=== PATIENT | female | born 1955 | race Caucasian/White ===

== ENCOUNTER 2020-08-14 10:37 | Outpatient (REF) | payer MEDICARE, MEDICAID, SELFPAY | END 2020-08-14 10:38 | disposition home or self-care (01) | LOC: HO.LAB 10:37 | PROVIDERS: Visit Provider Internal Medicine | DX: Z20.822 Contact with and (suspected) exposure to COVID-19 (principal) | CPT/HCPCS: 36415; C9803; U0003; U0005 ==

== ENCOUNTER 2020-09-18 13:13 | Outpatient (REF) | payer MEDICARE, MEDICAID, SELFPAY ==
--- NOTE | ~2020-09-18 | MM_ITS ---
EXAMINATION: MM DIAGNOSTIC DIGITAL BREAST TOMOSYNTHESIS, BILATERAL CLINICAL INFORMATION: Six-month follow-up left breast calcifications. Routine screening right breast. COMPARISON: Mammography: November 20, 2019 and studies dating back to November 08, 2011 TECHNIQUE: Digital breast tomosynthesis is performed in both the craniocaudal and mediolateral oblique views along with computer-aided detection (CAD). Synthesized 2D images are generated from the tomosynthesis. Spot magnification films left breast in craniocaudal and 90 degree mediolateral views also performed. FINDINGS: There are scattered areas of fibroglandular density (ACR BI-RADS breast composition Category b). No new abnormal dominant masses are identified. There is stability of left breast calcifications. Results are provided to the patient at time of visit by the technologist. MM/MM tomosynthesis diagnostic BI IMPRESSION: There are no significant changes from prior study. ASSESSMENT: BI-RADS 2: Benign RECOMMENDATION: Routine annual mammography screening due in 12 months. This patient's information was entered into a reminder system with a target due date for their next mammogram.
== END 2020-09-18 13:14 | disposition home or self-care (01) ==
LOC: HO.MAMMO 13:13
PROVIDERS: PCP Internal Medicine; Visit Provider Internal Medicine
DX: R92.1 Mammographic calcification found on diagnostic imaging of breast (principal)
CPT/HCPCS: 77062; 77066

== ENCOUNTER 2020-12-11 09:46 | Outpatient (REF) | payer MEDICARE, MEDICAID, SELFPAY ==
--- NOTE | ~2020-12-11 | MM_ITS ---
EXAMINATION: BONE DENSITOMETRY CLINICAL INDICATION: Screening for osteoporosis. COMPARISON: Baseline BD dated 08/30/2007. TECHNIQUE: Using a [employer] DXA System (software version: 13.1) manufactured by [employer], dual-energy x-ray absorptiometry was performed of the lumbar spine and left hip. The images are of good technical quality. Summary results are attached. FINDINGS: AP SPINE L1-L4: Current: BMD 1.230 g/cm2, Z-score 1.6, T-score 0.4, normal, 10.9% decrease from baseline (<5% change is not significant). Baseline: BMD 1.380 g/cm2. LEFT FEMUR, NECK: Current: BMD 0.836 g/cm2, Z-score 0.2, T-score -1.5, osteopenia. Baseline: BMD 1.032 g/cm2. LEFT FEMUR, TOTAL: Current: BMD 0.970 g/cm2, Z-score 0.7, T-score -0.3, normal, 13.5% decrease from baseline (<5% change is not significant). Baseline: BMD 1.122 g/cm2. IDENTIFIED RISK FACTORS: Hysterectomy, bilateral oophorectomy, menopause. HISTORY OF FRACTURE: None listed. MEDICATIONS: None listed. MM/XR DEXA axial skeleton IMPRESSION: 1. DIAGNOSIS: Osteopenia based on the lowest T-score value of -1.5 in the femoral neck applying World Health Organization criteria. 2. 10-YEAR FRACTURE RISK PREDICTION, FRAX: Major osteoporotic fracture (clinical spine, forearm, hip or shoulder) 4.8%. Hip fracture 0.5%. 3. Treatment Recommendations: NOF guidelines recommend consideration for treatment in postmenopausal women and men age 50 and older presenting with the following: -A hip or vertebral (clinical or morphometric) fracture. -T-score less than or equal to -2.5 at the femoral neck or spine after appropriate evaluation to exclude secondary causes. -Low bone mass at the hip or spine and a 10-year fracture probability by FRAX of greater than or equal to 3% for hip fracture or greater than or equal to 20% for major osteoporotic fracture based on the [place] adapted WHO algorithm. 4. Other Recommendations: All treatment decisions require clinical judgment and consideration of individual patient factors, including patient preferences, comorbidities, previous drug use, risk factors not captured in the FRAX model (e.g. frailty, falls, vitamin D deficiency, increased bone turnover, interval significant decline in bone density) and possible under or overestimation of fracture risk by FRAX. Additional medical evaluation for secondary cause of low bone mineral density may be appropriate. FUTURE SCAN RECOMMENDATION: People with diagnosed cases of osteoporosis or at high risk for fracture should have regular bone mineral density tests. For patients eligible for Medicare, routine testing is allowed once every 2 years. The testing frequency can be increased to one year for patients who have rapidly progressing disease, those who are receiving or discontinuing medical therapy to restore bone mass, or have additional risk factors.
== END 2020-12-11 09:47 | disposition home or self-care (01) ==
LOC: HO.MAMMO 09:46
PROVIDERS: PCP Internal Medicine; Visit Provider Internal Medicine
DX: Z13.820 Encounter for screening for osteoporosis (principal); M85.80 Other specified disorders of bone density and structure, unspecified site; Z78.0 Asymptomatic menopausal state; Z79.899 Other long term (current) drug therapy; Z98.890 Other specified postprocedural states
CPT/HCPCS: 77080

== ENCOUNTER 2022-01-18 14:16 | Outpatient (REF) | payer OTHER, SELFPAY ==
--- NOTE | ~2022-01-18 | US_ITS ---
EXAMINATION: US RETROPERITONEAL LIMITED (RENAL ONLY) CLINICAL INFORMATION: Dysuria, gross hematuria. COMPARISON: None TECHNIQUE: Real-time imaging of the kidneys. FINDINGS: RIGHT KIDNEY: 11.8 x 4.7 x 5.2 cm (SAG x AP x TRV). The kidney is normal in size, contour, and echogenicity. Renal cortical thickness is normal. No calculi. No hydronephrosis. There appears to be a column of Shay with similar echotexture and vascular flow to surrounding cortex. LEFT KIDNEY: 11.0 x 5.8 x 5.1 cm (SAG x AP x TRV). The kidney is normal in size, contour, and echogenicity. Renal cortical thickness is normal. No calculi or focal parenchymal lesions. No hydronephrosis. US/US renal BI IMPRESSION: No evidence of nephrolithiasis or hydronephrosis. Apparent column of Shay within the right kidney without definite focal suspicious mass being identified.
== END 2022-01-18 14:17 | disposition home or self-care (01) ==
LOC: HO.US 14:16
PROVIDERS: Visit Provider Nurse Practitioner
DX: R30.0 Dysuria (principal); R31.0 Gross hematuria
CPT/HCPCS: 76775

== ENCOUNTER 2023-08-10 08:35 | Outpatient (REF) | payer OTHER, SELFPAY ==
[2023-08-10 12:03] LABS: Alanine Aminotransferase 13 U/L (0-31); Albumin Level 4.5 g/dL (3.5-5.0); Alkaline Phosphatase 73 U/L (39-117); Anion Gap 14 (12-20); Aspartate Amino Transferase 21 U/L (5-31); Bilirubin Total 0.4 mg/dL (0.0-1.0); Blood Urea Nitrogen 16 mg/dL (9-16); Calcium 9.6 mg/dL (8.4-10.2); Carbon Dioxide 27 mmol/L (22-29); Chloride 104 mmol/L (96-108); Cholesterol 120 mg/dL (<200); Estimated Glomerular Filt Rate > 60; Glucose Random 108 mg/dL (60-115); HDL Cholesterol 53 mg/dL (>40); LDL Cholesterol Calculated 50 mg/dL (<100); Potassium 4.9 mmol/L (3.3-5.1); Sodium 140 mmol/L (135-145); Triglycerides 87 mg/dL (<150)
[2023-08-10 12:06] LABS: Thyroid Stimulating Hormone 17.63 uIU/mL (0.32-4.0)
[2023-08-10 12:15] LABS: Creatinine Urine 185.31 mg/dL; Microalbum/Creatinine Ratio Ur 68.5 ug/mg cr (<30)
== END 2023-08-10 08:36 | disposition home or self-care (01) ==
LOC: HO.HHCL 08:35
PROVIDERS: Visit Provider Nurse Practitioner
DX: E11.9 Type 2 diabetes mellitus without complications (principal); I10 Essential (primary) hypertension; E03.9 Hypothyroidism, unspecified; E78.5 Hyperlipidemia, unspecified
CPT/HCPCS: 36415; 80053; 80061; 82043; 82570; 84443

== ENCOUNTER 2023-09-07 11:33 | Outpatient (REF) | payer OTHER, SELFPAY ==
--- NOTE | ~2023-09-07 | MM_ITS ---
EXAMINATION: MM SCREENING DIGITAL BREAST TOMOSYNTHESIS, BILATERAL CLINICAL INFORMATION: Screening. Asymptomatic. COMPARISON: Mammography: This study is compared with prior exams dating back to 2018. TECHNIQUE: Digital breast tomosynthesis is performed in both the craniocaudal and mediolateral oblique views along with computer-aided detection (CAD). Synthesized 2D images are generated from the tomosynthesis. FINDINGS: There are scattered areas of fibroglandular density (ACR BI-RADS breast composition Category b). There are no significant masses, abnormal calcifications, or other abnormalities. There are bilateral, benign calcifications in each breast. MM/MM tomosynthesis screening BI IMPRESSION: No mammographic evidence of malignancy. ASSESSMENT: BI-RADS BI-RADS 2 - Benign Findings RECOMMENDATION: Routine annual mammography screening. 1 year F/U This examination should not preclude the clinical evaluation of a suspicious palpable abnormality. This patient's information was entered into a reminder system with a target due date for their next mammogram.
== END 2023-09-07 11:34 | disposition home or self-care (01) ==
LOC: HO.MAMMO 11:33
PROVIDERS: PCP Nurse Practitioner; Visit Provider Nurse Practitioner
DX: Z12.31 Encounter for screening mammogram for malignant neoplasm of breast (principal)
CPT/HCPCS: 77063; 77067

== ENCOUNTER → 2023-09-07 12:15 | Outpatient (BNV) | payer OTHER, SELFPAY | PROVIDERS: PCP Nurse Practitioner; Visit Provider Radiology Diagnostic Radiology | DX: Z12.31 Encounter for screening mammogram for malignant neoplasm of breast (principal) | CPT/HCPCS: 77063; 77067 ==

== ENCOUNTER 2023-09-29 10:34 | Outpatient (REF) | payer OTHER, SELFPAY ==
[2023-09-29 14:35] LABS: TSH reflex Free T4 1.95 uIU/mL (0.32-4.0)
== END 2023-09-29 10:35 | disposition home or self-care (01) ==
LOC: HO.HHCL 10:34
PROVIDERS: Visit Provider Nurse Practitioner
DX: E03.9 Hypothyroidism, unspecified (principal)
CPT/HCPCS: 36415; 84443

== ENCOUNTER 2023-11-24 09:46 | Outpatient (REF) | payer OTHER, SELFPAY ==
[2023-11-24 11:47] LABS: Anion Gap 15 (12-20); Blood Urea Nitrogen 13 mg/dL (9-16); Calcium 9.2 mg/dL (8.4-10.2); Carbon Dioxide 25 mmol/L (22-29); Chloride 105 mmol/L (96-108); Estimated Glomerular Filt Rate > 60; Glucose Random 108 mg/dL (60-115); Potassium 4.4 mmol/L (3.3-5.1); Sodium 141 mmol/L (135-145)
[2023-11-24 12:08] LABS: Vitamin D 25-OH Total 43.6 ng/mL (>30)
[2023-11-24 12:14] LABS: Vitamin B12 1102 pg/mL (200-900)
[2023-11-24 12:21] LABS: Creatinine Urine 172.73 mg/dL
[2023-11-24 12:28] LABS: Microalbum/Creatinine Ratio Ur 43.4 ug/mg cr (<30)
== END 2023-11-24 09:47 | disposition home or self-care (01) ==
LOC: HO.HHCL 09:46
PROVIDERS: Visit Provider Nurse Practitioner
DX: Z13.820 Encounter for screening for osteoporosis (principal); I10 Essential (primary) hypertension
CPT/HCPCS: 36415; 80048; 82043; 82306; 82570; 82607; 82746

== ENCOUNTER 2024-02-28 11:52 | Outpatient (REF) | payer OTHER, SELFPAY ==
[2024-02-28 15:01] LABS: Anion Gap 14 (12-20); Blood Urea Nitrogen 9 mg/dL (9-16); Calcium 9.7 mg/dL (8.4-10.2); Carbon Dioxide 25 mmol/L (22-29); Chloride 105 mmol/L (96-108); Estimated Glomerular Filt Rate > 60; Glucose Random 112 mg/dL (60-115); Potassium 4.7 mmol/L (3.3-5.1); Sodium 139 mmol/L (135-145); TSH reflex Free T4 0.47 uIU/mL (0.32-4.0)
[2024-02-28 15:04] LABS: Creatinine Urine 26.44 mg/dL; Microalbum/Creatinine Ratio Ur 83.2 ug/mg cr (<30)
[2024-02-29 05:32] LABS: ~HepC Num1 2.04 S/CO (0.00-0.79); ~Hepatitis C Antibody Reactive (Nonreactive)
[2024-03-02 14:13] LABS: HCV Log PCR <1.18 NOT DETECTED Log IU/mL (NOT DETECTED); HepC Viral Load <15 NOT DETECTED IU/mL (NOT DETECTED)
== END 2024-02-28 11:53 | disposition home or self-care (01) ==
LOC: HO.HHCL 11:52
PROVIDERS: Visit Provider Nurse Practitioner
DX: E03.9 Hypothyroidism, unspecified (principal); E11.9 Type 2 diabetes mellitus without complications; I10 Essential (primary) hypertension; R80.9 Proteinuria, unspecified
CPT/HCPCS: 36415; 80048; 82043; 82570; 84443; 86803; 87522

== ENCOUNTER 2024-03-19 09:44 | Outpatient (REF) | payer OTHER, SELFPAY ==
--- NOTE | ~2024-03-19 | MM_ITS ---
EXAMINATION: BONE DENSITOMETRY CLINICAL INDICATION: Osteopenia. COMPARISON: Previous BD dated 12/11/2020 and baseline BD dated 08/30/2007. TECHNIQUE: Using a [employer] DXA System (software version: 13.1) manufactured by [employer], dual-energy x-ray absorptiometry was performed of the lumbar spine and left hip. The images are of good technical quality. Summary results are attached. FINDINGS: LEFT FEMUR, NECK: Current: BMD 0.877 g/cm2, Z-score 0.4, T-score -1.2, osteopenia. Prior: BMD 0.836 g/cm2. Baseline: BMD 1.032 g/cm2. LEFT FEMUR, TOTAL: Current: BMD 0.908 g/cm2, Z-score 0.6, T-score -0.8, normal, 6.4% decrease from previous, 19.1% decrease from baseline (<5% change is not significant). Prior: BMD 0.970 g/cm2. Baseline: BMD 1.122 g/cm2. AP SPINE L1-L4: Current: BMD 1.176 g/cm2, Z-score 1.5, T-score 0.0, normal, 4.4% decrease from previous, 14.8% decrease from baseline (<5% change is not significant). Prior: BMD 1.230 g/cm2. Baseline: BMD 1.380 g/cm2. IDENTIFIED RISK FACTORS: Menopause, low calcium intake, hysterectomy, bilateral oophorectomy, secondary osteoporosis. HISTORY OF FRACTURE: None listed. MEDICATIONS: Calcium. MM/XR DEXA axial skeleton IMPRESSION: 1. DIAGNOSIS: Osteopenia based on the lowest T-score value of -1.2 in the femoral neck applying World Health Organization criteria. 2. 10-YEAR FRACTURE RISK PREDICTION, FRAX: Major osteoporotic fracture (clinical spine, forearm, hip or shoulder) 5.0%. Hip fracture 0.5%. 3. Treatment Recommendations: NOF guidelines recommend consideration for treatment in postmenopausal women and men age 50 and older presenting with the following: -A hip or vertebral (clinical or morphometric) fracture. -T-score less than or equal to -2.5 at the femoral neck or spine after appropriate evaluation to exclude secondary causes. -Low bone mass at the hip or spine and a 10-year fracture probability by FRAX of greater than or equal to 3% for hip fracture or greater than or equal to 20% for major osteoporotic fracture based on the [place] adapted WHO algorithm. 4. Other Recommendations: All treatment decisions require clinical judgment and consideration of individual patient factors, including patient preferences, comorbidities, previous drug use, risk factors not captured in the FRAX model (e.g. frailty, falls, vitamin D deficiency, increased bone turnover, interval significant decline in bone density) and possible under or overestimation of fracture risk by FRAX. Additional medical evaluation for secondary cause of low bone mineral density may be appropriate. FUTURE SCAN RECOMMENDATION: People with diagnosed cases of osteoporosis or at high risk for fracture should have regular bone mineral density tests. For patients eligible for Medicare, routine testing is allowed once every 2 years. The testing frequency can be increased to one year for patients who have rapidly progressing disease, those who are receiving or discontinuing medical therapy to restore bone mass, or have additional risk factors. Electronically signed by: Eduin Irizarry MD 03/26/2024 01:33 PM EDT
== END 2024-03-19 09:45 | disposition home or self-care (01) ==
LOC: HO.MAMMO 09:44
PROVIDERS: PCP Nurse Practitioner; Visit Provider Nurse Practitioner
DX: Z13.820 Encounter for screening for osteoporosis (principal); Z78.0 Asymptomatic menopausal state; M85.859 Other specified disorders of bone density and structure, unspecified thigh
CPT/HCPCS: 77080

== ENCOUNTER 2024-11-20 14:51 | Outpatient (REF) | payer OTHER, SELFPAY ==
--- OUTSIDE RECORDS SUMMARY | 2024-11-20 14:56 | XMS_ITS | Encounter Summary ---
Author Organization [email or web address] [facility] Address [address] [place] [address] [address] [place] [address] Care Team Providers Care Supervising Fire Marshal Name Role Phone Betsy Dior NP Primary Care Provider [phone] Reason for Visit * Reason Comments Med Refill Encounter Details Date Type Department Care Team (Late st Contact Info) Description 07/04/2023 Refill [facility] [address] [place] [address] Gokul Alcocer AGNP Seasonal allergic rhinitis, unspecified trigger Social History Tobacco Use Types Packs/Day Years Used Date Smoking Tobacco: Never Assessed Comments Unknown Sex and Gender Information Value Date Recorded Sex Assigned at Female 04/18/2022 10:19 AM EDT Legal Sex Female 10:19 AM EDT Gender Identity Female 04/18/2022 10:19 AM EDT Sexual Orientation Straight 04/18/2022 10 :19 AM EDT documented as of this encounter Plan of Treatment Upcoming Encounters Date Type Department Care Team (Late st Contact Info) Description 12/02/2024 1:30 PM EDT Office Visit [facility] MEDIC[facility] [address] [place] [address] Betsy Dior NP [address] [place] [address] documented as of this encounter Visit Diagnoses Diagnosis Seasonal allergic rhinitis, unspecified trigger documented in this encounter Care Teams Supervising Fire Marshal Relationship Specialty Start Date End Date Betsy Dior NP [address] [place] [address] PCP - General Family Medicine 06/21/23 documented as of this encounter
== END 2024-11-20 14:52 | disposition home or self-care (01) ==
LOC: HO.MAMMO 14:51
PROVIDERS: PCP Nurse Practitioner; Visit Provider Nurse Practitioner
DX: Z12.31 Encounter for screening mammogram for malignant neoplasm of breast (principal)
CPT/HCPCS: 77063; 77067

== ENCOUNTER → 2024-11-20 15:30 | Outpatient (BNV) | payer OTHER, SELFPAY | PROVIDERS: PCP Nurse Practitioner; Visit Provider Internal Medicine | DX: Z12.31 Encounter for screening mammogram for malignant neoplasm of breast (principal) | CPT/HCPCS: 77063; 77067 ==

== ENCOUNTER 2024-11-27 09:44 | Outpatient (REF) | payer OTHER, SELFPAY ==
--- OUTSIDE RECORDS SUMMARY | 2024-11-27 10:42 | XMS_ITS | Encounter Summary ---
Author Organization [employer] Address [address] [facility] [address] [place] [address] Care Team Providers Care Solvent Station Attendant Name Role Phone Betsy Dior NP Primary Care Provider [phone] Encounter Details Date Type Department Care Team ([facility] st Contact Info) Description 11/20/2024 Orders Only [facility] MEDICINE [address] [place] [address] Betsy Dior NP [address] [place] [address] Social History Tobacco Use Types Packs/Day Years Used Date Smoking Tobacco: Some Days Cigarettes Smokeless Tobacco: Never Alcohol Use Standard Drinks/Week Comments Never 0 (1 standard drink = 0.6 oz pur e alcohol) Alcohol Answer Date Recorded Frequency of Alcohol Consumption Not on file 04/03/2024 Average Number of Drinks Not on file 024 Frequency of Binge Drinking Not on file 03/19 Score 0 04/03/2024 Depression Answer Date Recorded Patient Health Questionnaire-9 Score 0 04/03/2024 Patient Health Questionnaire-9 Score 0 04/03/2024 Last PHQ-9: Questionnaire Data Not on file 1 Housing Stability Answer Date Recorded What is your housing situation today? I have emilie levy 08/09/[address] you li ve. Do you have problems with any of the following? None of the above 08/09/2023 Food Insecurity Answer Date Recorded Within the past 12 months, y ou worried that your food would run out before you got money to buy more: Never True 08/09/2023 Within the past 12 months,th e food you bought just didn't last and you didn't have enough money to get more: Never True Transportation Answer Date Recorded In the past 12 months, has l ack of transportation kept you from medical appts, meetings, work or from getting things needed for daily living? No 08/09/2023 Utilities Answer Date Recorded In the past 12 months, has t he electric, gas, oil or water company threatened to shut off services in your home? No 08/09/2023 Depression Answer Date Recorded Patient Health Questionnaire-2 Score 0 04/03/2024 Comments Unknown Sex and Gender Information Value [...] Description 12/02/2024 1:30 PM EDT Office Visit [facility] MEDICINE [address] [place] [address] Betsy Dior NP [address] [place] [address] documented as of this encounter Procedures Procedure Name Priority Date/Time Associated Diagnosis Comments BI MAMMOGRAM SCREENING TOMOSYNTHESIS BILATERAL Routine 11/20/2024 2:55 PM EDT documented in this encounter Results * BI Mammogram Screening Tomosynthesis Bilateral (11/20/2024 2:55 PM EDT) Anatomical Region Laterality Modality Breast Bilateral Mammography 11/20/2024 2:55 PM EDT Narrative 11/24/2024 7:57 PM EDT ? [facility] [place] ? [address] ?[place] [address] ?[phone] ? Mammography Report ? Signed ? Patient: Franki Tilton,Thais ?MR#: [id number] ?? [id number] ? : 1955 ?Acct:[id number] ? Age/Sex: 69 / F ?ADM Date: 06/04/25 ? Loc: HO.MAMMO ? Attending Dr: Betsy Dior ? Ordering Physician: Betsy Dior ?Results: 1Negative ? Date of Service: 11/20/24 ?Follow Up: 1 Year From Orig ?? inal Mammogram ? Procedure(s): MM tomosynthesis screening BI ?? Accession Number(s): [id number] ? cc: Betsy Dior ? EXAMINATION: ?? MM SCREENING DIGITAL BREAST TOMOSYNTHESIS, BILATERAL ? CLINICAL INFORMATION: ? Screening. Asymptomatic. ? COMPARISON: ?? Mammography: Comparison is made with available priors ? TECHNIQUE: ?? Digital breast mammography with tomosynthesis is performed in both the ?? craniocaudal and mediolateral oblique views along with computer-aided ?? detection (CAD). ? FINDINGS: ?? There are scattered areas of fibroglandular density (ACR BI-RADS breast ?? composition Category b). ? There are no significant masses, abnormal calcifications, or other ?? abnormalities. ? MM/MM tomosynthesis screening BI ?? IMPRESSION: ?? No mammographic evidence of malignancy. ? ASSESSMENT: ? BI-RADS BI-RADS 1 - Negative ? RECOMMENDATION: ?? Routine annual mammography screening. ? 1 year F/U ? This examination should not preclude the clinical evaluation of a ?? suspicious palpable abnormality. ? This patient's information was entered into a reminder system with a ?? target due date for their next mammogram. ? Electronically signed by: ??Khadra Chapman DO ??11/24/2024 07:54 PM EDT ?? RP ? Dictated By: ?Khadra Chapman DO ? Signed By: ?<Electronically signed by Khadra Chapman, DO in OV> ? 11/24/241953 ? DD/ 54 ? TD/TT: 11/20/24 1507 ? Rawhide Trimmer: ? Procedure Note Donmarisabel, Image - 11/24/2024 [facility] [address] [place] [address] Mammography Report Signed Patient: Lizbeth Olivera#: [id number] : 5Acct:[id number] Age/Sex: 69 / FADM Date: 11/20/24 Loc: HO.MAMMO Attending Dr: Betsy Dior Ordering Physician: Betsy DiorResults: 1Negative Date of Service: 11/20/24Follow Up: 1 Year From Orig inal Mammogram Procedure(s): MM tomosynthesis screening BI Accession Number(s): [id number] cc: Betsy Dior EXAMINATION: MM SCREENING DIGITAL BREAST TOMOSYNTHESIS, BILATERAL CLINICAL INFORMATION: Screening. Asymptomatic. COMPARISON: Mammography: Comparison is made with available priors TECHNIQUE: Digital breast mammography with tomosynthesis is performed in both the craniocaudal and mediolateral oblique views along with computer-aided detection (CAD). FINDINGS: There are scattered areas of fibroglandular density (ACR BI-RADS breast composition Category b). There are no significant masses, abnormal calcifications, or other abnormalities. MM/MM tomosynthesis screening BI IMPRESSION: No mammographic evidence of malignancy. ASSESSMENT: BI-RADS BI-RADS 1 - Negative RECOMMENDATION: Routine annual mammography screening. 1 year F/U This examination should not preclude the clinical evaluation of a suspicious palpable abnormality. This patient's information was entered into a reminder system with a target due date for their next mammogram. Electronically signed by: Khadra Chapman DO 11/24/2024 07:54 PM EDT Dictated By: Khadra Chapman DO Signed By: <Electronically signed by Khadra Chapman DO in OV> 11/24/24 195 DD/ 1455 TD/TT: 11/20/24 1507 Rawhide Trimmer: Betsy Dior NP IMG BI PROCEDURES Edited Result - Final documented in this encounter Visit Diagnoses Not on filedocumented in this encounter Additional Health Concerns Assessment Noted Time PHQ-9 Depression Total Score: 0 04/03/20 2:15 PM EDT documented as of this encounter Care Teams Solvent Station Attendant Relationship Specialty Start Date End Date Betsy Dior NP [address] [place] [address] PCP - General Family Medicine 06/21/23 documented as of this encounter
[2024-11-27 11:35] LABS: Estimated Average Glucose 151 mg/dL; Hemoglobin A1c % 6.9 % (<6.0)
[2024-11-27 11:49] LABS: Alanine Aminotransferase 11 U/L (0-31); Albumin Level 4.7 g/dL (3.5-5.0); Alkaline Phosphatase 72 U/L (39-117); Anion Gap 10 (12-20); Aspartate Amino Transferase 21 U/L (5-31); Bilirubin Total 0.4 mg/dL (0.0-1.0); Blood Urea Nitrogen 15 mg/dL (9-16); Calcium 9.5 mg/dL (8.4-10.2); Carbon Dioxide 27 mmol/L (22-29); Chloride 103 mmol/L (96-108); Cholesterol 116 mg/dL (<200); Estimated Glomerular Filt Rate > 60; Glucose Random 109 mg/dL (60-115); HDL Cholesterol 48 mg/dL (>40); LDL Cholesterol Calculated 50 mg/dL (<100); Potassium 4.4 mmol/L (3.3-5.1); Sodium 136 mmol/L (135-145); Total Protein 7.5 g/dL (6.5-8.0); Triglycerides 92 mg/dL (<150)
[2024-11-27 12:10] LABS: Creatinine Urine 94.27 mg/dL; Microalbum/Creatinine Ratio Ur 55.1 ug/mg cr (<30)
== END 2024-11-27 09:45 | disposition home or self-care (01) ==
LOC: HO.HHCL 09:44
PROVIDERS: Visit Provider Nurse Practitioner
DX: E11.9 Type 2 diabetes mellitus without complications (principal); I10 Essential (primary) hypertension
CPT/HCPCS: 36415; 80053; 80061; 82043; 82570; 83036

== ENCOUNTER 2025-03-12 09:14 | Outpatient (REF) | payer OTHER, SELFPAY ==
--- OUTSIDE RECORDS SUMMARY | 2025-03-12 10:50 | XMS_ITS | Clinical Summary ---
Demographics Address [address] [place] [address] Mobile Phone Home Phone Preferred Language es Marital Status Single Nondenominational Affiliation Unknown Race Other Race Ethnic Group Unknown Author Organization [facility] Address [address] [place] [address] Care Team Providers Care Financial Administration Officer Name Role Phone Maria FernandaBetsy busch GRACE Primary Care Provider [phone] Allergies No known active allergies Medications lidocaine (Xylocaine) 5 % ointment Apply topically at bed time. 02/24/20 22 Active lidocaine (Lidoderm) 5 % patch Place 1 patch on the skin at bed time. 03/07/20 22 Active glucagon (Baqsimi One Pack) 3 MG/DOSE nasal powderIndicati ons:Type 2 diabetes mellitus without complication, without long-term current use of insulin ([facility]) Administer 3 mg into affected nostril(s) 1 (one) time if needed for low blood sugar. 1 each 1 02/28/20 24 Active hydrocortisone 2.5 % creamIndicatio ns:Rash Apply topically 2 times daily. Apply to neck 28 g 04/03/20 24 Active lisinopril 40 MG tabletIndicati ons:Hypertensi on, unspecified type Take 1 tablet (40 mg) by mouth Once per day. 90 tablet 3 04/03/20 24 025 Active omeprazole (PriLOSEC) [address] capsule take 1 capsule by oral route every day before a meal 90 capsule 3 04/03/20 24 Active ondansetron (Zofran) 4 MG tabletIndicati ons:Nausea Take 1 tablet (4 mg) by mouth every 8 (eight) hours if needed for nausea or vomiting for up to 10 doses. 10 tablet 06/28/19 25 Active Diclofenac Sodium 1 % gelIndications :Pain in both wrists Apply 1 Application topically if needed in the morning, at noon, and at bedtime (pain). 100 g 1 06/28/19 25 Active aspirin (Aspirin Low Dose) 81 MG EC tablet TAKE 1 TABLET BY MOUTH AT BEDTIME 90 tablet 1 10/23/19 25 Active Ascorbic Acid (vitamin C) 500 MG tablet TAKE 2 TABLETS BY MOUTH ONCE DAILY IN THE MORNING 180 tablet 1 10/23/19 25 Active loratadine (Claritin) 10 MG tabletIndicati ons:Seasonal allergic rhinitis, unspecified trigger TAKE 1 TABLET BY MOUTH ONCE DAILY NEEDED FOR ALLERGIES 90 tablet 1 10/23/19 25 Active folic acid (Folvite) 1 MG tablet TAKE 1 TABLET BY MOUTH EVERYDAY AT NOON 90 tablet 1 10/23/19 25 Active TRUEplus Lancets 33G miscIndication s:Type 2 diabetes mellitus without complication, unspecified whether skilled nursing insulin use ([facility]) TEST BLOOD SUGAR TWICE DAILY OR DIRECTED 100 each 11 10/25/19 25 Active glucose blood (FREESTYLE LITE) test stripIndicatio ns:Type 2 diabetes mellitus without complication, unspecified whether laborer marine terminal insulin use ([facility]) TEST BLOOD SUGAR TWICE DAILY OR DIRECTED 100 strip 11 10/25/19 25 Active melatonin 5 MG tablet TAKE 2 TABLETS BY MOUTH EVERY DAY AT BEDTIME 60 tablet 3 11/19/19 25 Active hydrocortisone (Anusol-HC) 2.5 % rectal cream Insert into the rectum 2 times daily. 28 g 2 12/03/19 25 Active metFORMIN (Glucophage) 500 MG tabletIndicati ons:Type 2 diabetes mellitus without complication, without long-term current use of insulin ([facility]) Take 1 tablet (500 mg) by mouth with breakfast and with evening meal. 180 tablet 12/04/19 25 Active atorvastatin (Lipitor) 40 MG tabletIndicati ons:Type 2 diabetes mellitus without complication, unspecified whether laborer marine terminal insulin use ([facility]) TAKE 1 TABLET BY MOUTH AT BEDTIME 90 tablet 01/17/20 25 Active amLODIPine (Norvasc) 10 MG tabletIndicati ons:Hypertensi on, unspecified type TAKE 1 TABLET BY MOUTH EVERYDAY AT NOON 90 tablet 01/17/20 25 Active levothyroxine (Synthroid, Levoxyl) 125 MCG tabletIndicati ons:Hypothyroi dism, unspecified type TAKE 1 TABLET BY MOUTH EVERY MORNING ON AN EMPTY STOMACH 30-60 MINUTES BEFORE MEALS 90 tablet 01/17/20 25 Active Calcium 600/Vitamin D3 600-20 MG-MCG tabletIndicati ons:Osteopenia of neck of femur, unspecified laterality TAKE 1 TABLET BY MOUTH TWICE DAILY IN THE MORNING AND IN THE EVENING WITH FOOD 60 tablet 3 03/11/20 25 Active Kerendia 20 MG tabletIndicati ons:Microalbum inuria TAKE 1 TABLET BY MOUTH EVERY DAY 30 tablet 2 03/11/20 25 Active empagliflozin (Jardiance) 10 MGIndications: Microalbuminur ia TAKE 1 TABLET BY MOUTH EVERY MORNING 30 tablet 3 03/11/20 25 Active ammonium lactate (Lac-Hydrin) 12 % lotionIndicati ons:Itchy skin Apply topically if needed for dry skin. 225 g 02/28/20 24 025 Calcium 600/Vitamin D3 600-20 MG-MCG tabletIndicati ons:Osteopenia of neck of femur, unspecified laterality TAKE 1 TABLET BY MOUTH TWICE DAILY WITH FOOD 60 tablet 3 11/19/19 25 025 Discontinued Finerenone (Kerendia) 20 MG tabletIndicati ons:Microalbum inuria Take 20 mg by mouth Once per day. 30 tablet 2 12/04/19 25 025 Discontinued Jardiance 10 MGIndications: Microalbuminur ia TAKE 1 TABLET BY MOUTH EVERY MORNING 30 tablet 2 12/17/19 25 025 Discontinued(R eorder (will not trigger notification to Pharmacy)) Active Problems Problem Noted Date Diagnosed Date Rash 11/23/2023 Assessment & Plan (04/03/2024 1:44 PM EDT): -suspect topical dermatitis -trial application of hydrocortisone cream Assessment & Plan (11/23/2023 8:40 PM EDT): -likely atopic dermatitis -trial hydrocortisone topical cream x1 week Osteopenia of neck of femur 08/18/2023 Overview (08/18/2023): T-score -1.5 FRAX: major osteoporotic fracture 4.8%. Hip fracture 0.5% Assessment & Plan (04/03/2024 1:41 PM EDT): -T-score -1.2 in femoral neck -advised to take 2 tabs in the am to ensure adequate intake of full dose -daily exercise advised Assessment & Plan (02/28/2024 12:51 PM EDT): -was called for an appointment but she did not understand reasoning and therefore declined the appointment -discussed reasoning for DEXA with patient and she is agreeable to completing the scan -prescription for calcium and vit D sent to pharmacy for supplementation -encouraged weight bearing activities daily Assessment & Plan (11/23/2023 8:50 PM EDT): -last screen completed in 2020 -DEXA scan ordered today to evaluate progress -discuss calcium supplementation at next visit Assessment & Plan (11/06/2023 2:23 PM EDT): Routine adult health maintenance 08/09/2023 Assessment & Plan (02/28/2024 12:50 PM EDT): -pt reports having hysterectomy at [facility] in 2010; believes cervix was also removed. 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 -diclofenac topical sent to pharmacy -will discuss further at next visit Encounter for screening mamm ogram for malignant neoplasm of breast 08/09/2023 Bilateral impacted cerumen 08/09/2023 Assessment & Plan (08/09/2023 3:19 PM EST): -rx for debrox sent to pharmacy -daily ear cleaning with towel following shower advised Food insecurity 08/20/2018 Varicose veins of lower extremity 03/28/2018 Microalbuminuria 11/04/2013 Assessment & Plan (02/13/2025 3:57 PM EDT): -significant improvement noted since starting Jardiance -discussed importance of continued BP and glucose control -plan to repeat in 1 year Assessment & Plan (04/03/2024 2:02 PM EDT): -persistently elevated over the past 7 months -patient is encouraged to avoid all NSAIDs -will discontinue januvia and start Jardiance for additional renal protection Assessment & Plan (02/28/2024 12:36 PM EDT): Images from the original note were not included. -downward trending within the past 6 months although still elevated -repeat ordered today -will refer to nephrology for further work up with persistently elevated value -explained importance of tight BP control -will call with results Cobalamin deficiency 03/06/2012 Diabetes mellitus type 2, uncomplicated 03/06/20 12 Overview (02/13/2025): A1c goal 7-8% as to prevent incidence of hypoglycemia Meds: jardiance 10 mg; metformin 500 mg two times daily Assessment & Plan (02/13/2025 4:01 PM EDT): -A1c at goal of <7% with value of 6.9% -continue: metformin 500 mg Bid and jardience 10 mg -foot exam: completed today/ due next year -daily foot exams encouraged -low carb, low sugar diet and daily physical activity advised Assessment & Plan (06/20/2024 11:21 AM EST): -approaching stability -A1c of 7.3% as of 1 month ago. POCT glucose today 138 mg/dL. -advised to discontinue Januvia and start Jardiance for renal benefits as well. continue metformin -MONTEZ and Statin therapies in place -will complete foot exam at next visit -follow-up 3 month Assessment & Plan (02/28/2024 12:43 PM EDT): -A1c slightly above goal of 7%. POCT A1c today 7.3% -continue current regimen: metformin and januvia -episodes of hypoglycemia likely due to decreased food intake. Diabetes mellitus dietary requirements reviewed -glucagon prescription sent to pharmacy for emergency use -follow-up 1 month Assessment & Plan (11/23/2023 8:30 PM EDT): -A1c approaching goal of <7%. POCT A1c 7.1% today from 7.4% -continue metformin 1000 mg and Januvia 25 mg -microalbumin: mildly elevated. Re-ordred today -foot exam: completed today without abnormal findings -eye exam: previously referred; appointment pending -MONTEZ/ARB therapy: yes; lisinopril 40 mg -Statin: lipitor 40 mg -daily foot exams encouraged -low carb, low sugar diet and daily physical activity advised -follow-up 3 months Assessment & Plan (08/09/2023 3:16 PM EST): -stable at this time -continue current medication regimen -lab ordered to eval organ function -will complete foot exam at next visit -low carb diet and daily exercise reviewed -referral placed for vision center -follow-up 3 months Gastroesophageal reflux disease 03/06/2012 Hyperlipidemia 03/06/2012 Assessment & Plan (08/09/2023 3:18 PM EST): -continue lipitor 40 mg every day -Healthy diet and exercise teaching completed: Eat a variety of fruit and vegetables, whole grains such as whole-wheat flour, bulgur (cracked wheat), oatmeal, and brown rice. Intake protein from beans, nuts, fish, and lean meats. Eat low-fat or fat- free dairy products. Limit highly processed foods such as hot dogs, sandwich meat, etc. Engage in minimum of 150 min of moderate intensity exercise weekly -labs ordered. Will call with results Hypertension 03/06/2012 Assessment & Plan (02/13/2025 3:51 PM EDT): -Hypertension stable and no significant medication side effects noted. -Current treatment (lisinopril 40 mg and amlodipine 10 mg) plan is effective, no change in therapy. -Repeat labs ordered prior to next appointment. -Reviewed diet, exercise and weight control Assessment & Plan (04/03/2024 1:36 PM EDT): -BP stable at this time -continue current regimen with lisinopril and amlodipine -re-inforced low Na diet and physical activity -continue home BP monitoring Assessment & Plan (02/28/2024 12:32 PM EDT): -BP slightly above target goal of <130/80 mmHg. This acceptable given her age -continue lisinopril 40 and amlodipine 10 mg -microalbumin: slightly elevated @ 68.5 (07/2023). Repeat ordered today -ASCVD risk: unable to calculate based on lipid panel results -daily BP monitoring advised -low salt diet and 30 min moderate intensity daily exercise recommended -Reviewed ED precautions to include chest pain, shortness of breath, severe headache, sudden vision changes or BP >=180/>=120 mmHg. -Call clinic if three or more BP readings >140/90. -labs ordered to evaluate kidney function -follow-up 3 months Assessment & Plan (11/23/2023 8:22 PM EDT): -BP below target goal of <130/80 mmHg -continue lisinopril 40 and amlodipine 10 mg -microalbumin: slightly elevated @ 68.5 (07/2023). Repeat ordered today -ASCVD risk: unable to calculate based on lipid panel results -daily BP monitoring advised -low salt diet and 30 min moderate intensity daily exercise recommended -Reviewed ED precautions to include chest pain, shortness of breath, severe headache, sudden vision changes or BP >=180/>=120 mmHg. -Call clinic if three or more BP readings >140/90. -labs ordered to evaluate kidney function -follow-up 3 months Assessment & Plan (08/09/2023 3:16 PM EST): -stable on current regimen -continue medications as prescribed -daily monitoring of BP advised -low salt diet and daily exercise advised -labs ordered; will call with results -referral placed for vision check Follow-up 3 months Hypothyroidism 03/06/2012 Assessment & Plan (06/20/2024 11:09 AM EST): -stable on levothyroxine 125 mcg -med refilled per patient request -will repeat labs to evaluate med effectiveness at follow-up Assessment & Plan (11/23/2023 8:35 PM EDT): -patient denies symptoms at this time -synthroid dose increased to 125 mcg following 08/12 TSH of 17.8 ulU/mL -denies symptoms of hyper/hypothyroid; benign PE -TSH recheck ordered today -will adjust levothyroxine dose as necessary Assessment & Plan (08/09/2023 3:17 PM EST): -symptomatically stable at this time on levothyroxine 112 mcg -TSH ordered for re-evaluation Encounters Date Type Department Care Team Description 03/10/2025 Telephone [facility] [address] [place] [address] Betsy Dior NP 03/07/2025 Patient Outreach [facility] [address] [place], [place] [phone] Betsy Dior NP Pre-visit Planning (SDOH was already completed) 03/07/2025 Refill [facility] [address] [place] [address] Robyn Paredes NP Microalbuminuria 03/07/2025 Refill [facility] [address] [place] [address] Betsy Dior NP Osteopenia of neck of femur, unspecified laterality; Microalbuminuria 01/27/2025 Telephone [facility] [address] [place] [address] Betsy Dior NP Stephany recall 01/16/2025 Refill [facility] [address] [place] [address] Name, MD Rene Type 2 diabetes mellitus without complication, unspecified whether laborer marine terminal insulin use ([facility]); Hypertension, unspecified type; Hypothyroidism, unspecified type 12/14/2024 Refill [facility] [address] [place] [address] Betsy Dior NP Microalbuminuria from Last 3 Months Immunizations Immunization Administration Dates Next Due Hep B, adult 12/15/2010,04/01/2008,02/29/2008 Influenza High-dose Quadriva lent Preservative Free 04/06/2023,03/07/2022,03/17/2021,03/10 Influenza injectable quadriv alent IIV4 with preservative 03/28/2018,08/08/2017,05/08/2015 Influenza injectable quadriv alent preservative free 07/04/2019,07/11/2016 Influenza, High Dose Seasona l, Preservative Free 02/28/2024 Influenza, IIV3, injectable 05/09/2014, 1 Influenza, Split (incl. franklin fied surface antigen) 04/17/2013,03/06/2012 MMR 04/26/2007 Pfizer Covid-19 Vaccine 12+ 04/03/2024 Pneumococcal Conjugate PCV 13 03/10/2020 Pneumococcal Conjugate PCV 20 08/09/2023 Pneumococcal Polysaccharide PPSV23 03/17/2021, TD (adult), 2 Lf tetanus tox oid, preservative free, adsorbed 03/07/2022,03/06/2007 Tdap 03/06/2012 Zoster, Recombinant 07/24/2020,03/17/2020 Zoster, live 10/20/2014 Social History Tobacco Use Types Packs/Day Years Used Date Smoking Tobacco: Some Days Cigarettes Smokeless Tobacco: Never Tobacco Cessation:Ready to Q uit: Not Asked; Counseling Given: Not Answered Alcohol Use Standard Drinks/Week Comments Never 0 [...] housing situation today? I have emilie levy 12/02/[address] you li ve. Do you have problems with any of the following? None of the above 12/02/2024 Food Insecurity Answer Date Recorded Within the past 12 months, y ou worried that your food would run out before you got money to buy more: Never True 2024 Within the past 12 months,th e food you bought just didn't last and you didn't have enough money to get more: Sometimes True 12/02/2024 Transportation Answer Date Recorded In the past 12 months, has l ack of transportation kept you from medical appts, meetings, work or from getting things needed for daily living? No 12/02/2024 Utilities Answer Date Recorded In the past 12 months, has t he electric, gas, oil or water company threatened to shut off services in your home? No 12/02/2024 Depression Answer Date Recorded Patient Health Questionnaire-2 Score 0 04/03/2024 Internet Access Answer Date Recorded Internet Access Q1 Yes 12/02/2024 Internet Access Q2 Not on file 12/02/2024 Comments Unknown Sex and Gender Information Value Date Recorded Sex Assigned at Female 04/18/2022 10:19 AM EDT Legal Sex Female 10:19 AM EDT Gender Identity Female 04/18/2022 10:19 AM EDT Sexual Orientation Straight 04/18/2022 10 :19 AM EDT Last Filed Vital Signs Vital Sign Reading Time Taken Comments Blood Pressure 130/80 12/02/2024 1:28 PM EDT Pulse 66 12/02/2024 1:28 PM EDT Temperature 36.7 C (98.1 F) 12/02/2024 1:28 PM EDT Respiratory Rate 16 12/02/2024 1:28 PM EDT Oxygen Saturation 98% 12/02/2024 1:28 PM EDT Inhaled Oxygen Concentration - - Weight 65.6 kg (144 lb 9.6 oz) 12/02/2024 1:28 P M EDT Height 154.9 cm (5' 1 ) 12/02/2024 1:28 PM EDT Body Mass Index 27.32 12/02/2024 1:28 PM EDT Plan of Treatment Upcoming Encounters Date Type Department Care Team (Late st Contact Info) Description 03/17/2025 11:30 AM EDT Office Visit [facility] [address] [place] [address] Betsy Dior NP [address] [place] [address] 05/19/2025 3:30 PM EST Office Visit [facility] [address] [place], [place] [phone] Nhi Mccrary, OD [address] [place] [address] Health Maintenance Due Date Last Done Comments CT Colonography 1955 FIT DNA/Cologuard 1955 FIT 1955 FOBT 1955 Sigmoidoscopy 1955 Hepatitis A Vaccines (1 of 2 - Risk 2-dose series) 1973 RSV Patients and Patients Aged 60 years or older (1 - Risk 60-74 years 1-dose series) 2014 Colonoscopy 11/14/2023 11/13/2018 Colorectal Cancer Screening 11/14/2023 COVID-19 Vaccine ( season) 2025 04/03/2024, 05/24/2021, 09/14/2020, Additional history exists Influenza Vaccine (#1) 2025 , 04/06/2023, 03/07/2022, Additional history exists Alcohol/Substance Use Screening 04/03/2025 04/03/2024 Depression Screening 04/03/2025 04/03/2024, 04/03/20 24 Diabetes: Hemoglobin A1C 05/29/2025 025, 02/28/2024, 11/22/2023, Additional history exists Tobacco Screening 06/28/2025 06/28/2024 Diabetes: Urine Protein Screening 11/27/2025 11/27/2024, 02/28/2024, 11/24/2023, Additional history exists Lipid Panel 11/27/2025 11/27/2024, 07/21, 09/29/2021, Additional history exists Diabetes: Foot Exam 12/02/2025 12/02/2024, 12/02/2024, 12/02/2024, Additional history exists SDOH Screening 12/02/2025 12/02/2024 Eye Exam 03/07/2026 03/07/2024, 02/17, 03/07/2024, Additional history exists Mammogram 11/20/2026 11/20/2024, 08/18, 12/11/2020, Additional history exists DTaP/Tdap/Td Vaccines (3 - Td or Tdap) 03/07/2032 03/07/2022, 03/06/2012, 03/06/2007 Hepatitis B Vaccines Completed 12/15/2010, 04/01/2008, 02/29/2008 Zoster Vaccines Completed 07/24/2020, 02/18, 10/20/2014 Pneumococcal Vaccine: 50+ Years Completed 08/09/2023, 03/17/2021, 03/10/2020, Additional history exists HIB Vaccines Aged Out No longer eligi ble based on patient's age to complete this topic HPV Vaccines Aged Out No longer eligi ble based on patient's age to complete this topic IPV Vaccines Aged Out No longer eligi ble based on patient's age to complete this topic Meningococcal B Vaccine Aged Out No l onger eligible based on patient's age to complete this topic Meningococcal Vaccine Aged Out No haley kemar eligible based on patient's age to complete this topic RSV under 20 months Aged Out No longe r eligible based on patient's age to complete this topic Rotavirus Vaccines Aged Out No longer eligible based on patient's age to complete this topic Procedures Procedure Name Priority Date/Time Associated Diagnosis Comments ALBUMIN, RANDOM URINE W/CREATININE Routine 11/27/2024 9:46 AM EDT Type 2 diabetes mellitus without complication, without long-term current use of insulin ([facility]) Primary hypertension HEMOGLOBIN A1C Routine 11/27/2024 9:46 AM EDT Type 2 diabetes mellitus without complication, without long-term current use of insulin ([facility]) Primary hypertension LIPID PANEL, STANDARD Routine 11/27/2024 9:46 AM EDT Type 2 diabetes mellitus without complication, without long-term current use of insulin ([facility]) Primary hypertension BI MAMMOGRAM SCREENING TOMOSYNTHESIS BILATERAL Routine 11/20/2024 2:55 PM EDT HM COLONOSCOPY Routine 11/13/2018 from Last 3 Months or Most Recently Relevant to Health Maintenance Results * (ABNORMAL) Albumin, Random Urine W/Creatinine (11/27/2024 9:46 AM EDT) Creatinine, Urine 94.27 mg/dL [facility] Microalbumin Urine 52.0 mg/L [facility] Microalbum Creatinine Ratio Ur 55.1(H) <30 ug/mg cr [facility] Comment:Albumin/Creatinine R atio Reference Ranges: Normal: < 30 ug/mg creatinine Microalbuminuria: 30 - 300 ug/mg creatinineClinical Albuminuria: > 300 ug/mg creatinine Urine (Urine, Random) 11/27/2024 9:46 AM EDT 11/27/2024 11:14 AM EDT us Betsy Dior NP LAB URINE ORDERABLES Final Resu lt Performing Organization Address City/State/[facility] Co de Phone Number [facility] [address] [place] [phone] * (ABNORMAL) Hemoglobin A1c (11/27/2024 9:46 AM EDT) Hemoglobin A1c 6.9(H) <6.0 % [facility] Comment:Hemoglobin A1C Refer ence Range Adults: 4.8 - 6.0 % Non diabetic: < 6.0 % Goal: < 7.0 %Additional Action Suggested: > 8.0 %Note: Hemoglobin A1c results are invalid for patients with abnormal amounts of HbF. Blood transfusions may impact the HbA1c concentration in the patient sample. Estimated Average Glucose 151 mg/dL [facility] Comment:eAG = Estimated ave rage glucose which is %A1C expressed asaverage glucose, using the formula of the [id number] Glucose study (ADAG), Diabetes Care, Vol.31,#8,Jan. 2007 Blood Venous blood specimen / Unknown 11/27/2024 9:46 AM EDT 11/27/2024 11:17 AM EDT us Betsy Appram [employer] TE[employer] LAB BLOOD ORDERABLES Final Resu lt Performing Organization Address City/[facility]/ZIP Co de Phone Number [facility] [address] [place] [address] [phone] * Lipid Panel, Standard (11/27/2024 9:46 AM EDT) Triglycerides 92 <150 mg/dL [facility] Comment:Desirable Triglyceri de: less than 150 mg/dLBorderline High Triglyceride 150-199 mg/dLHigh Triglyceride: 200-499 mg/dLVery High Triglyceride: greater than or equal to 5OO mg/dL Cholesterol 116 <200 mg/dL [facility] Comment:Desirable Cholestero l: less than 200 mg/dLBorderline High Cholesterol: 200-239 mg/dLHigh Cholesterol: greater than 239 mg/dL LDL Cholesterol Calculated 50 <100 mg/dL [facility] Comment:Desirable LDL: less than 100 mg/dLNear Optimal/Above Optimal LDL: 110- 129 mg/dLBorderline High LDL: 130-159 mg/dLHigh LDL: 160-189 mg/dLVery High LDL: greater than or equal to 190 mg/dL HDL Cholesterol 48 >40 mg/dL [facility] Comment:Desirable HDL: great er than 40 mg/dL Note: This HDL assay may give artificially low results in patients with liver disease. Blood Venous blood specimen / Unknown 11/27/2024 9:46 AM EDT 11/27/2024 11:20 AM EDT Betsy Dior [employer] LAB BLOOD ORDERABLES Final Resu lt [facility] [address] [place] [address] [phone] * BI Mammogram Screening Tomosynthesis Bilateral (11/20/2024 2:55 PM EDT) Anatomical Region Laterality Modality Breast Bilateral Mammography 11/20/2024 2:55 PM EDT Narrative 11/24/2024 7:57 PM EDT [facility] [address] [place], [place] [address] Mammography Report Signed Patient: Thais Olivera MR#: [id number] : 1955 Acct:[id number] Age/Sex: 69 / F ADM Date: 11/20/24 Loc: HO.MAMMO Attending Dr: Betsy Dior Ordering Physician: Betsy Doir Results: 1Negative Date of Service: 11/20/24 Follow Up: 1 Year From Orig inal Mammogram Procedure(s): MM tomosynthesis screening BI Accession Number(s): [id number] cc: Betsy Dior EXAMINATION: MM SCREENING DIGITAL [...] signed by Khadra Chapman DO in OV> 11/24/241953 DD/ 1455 TD/TT: 11/20/24 1507 Odd Bundle Worker: Procedure Note Donotuseinterpreter, Image - 11/24/2024 [facility] [address] [place] [address] [place] [address] Mammography Report Signed Patient: Thais OliveraMR#: [id number] : 5Acct:[id number] Age/Sex: 69 / FADM Date: 11/20/24 Loc: HO.MAMMO Attending Dr: Betsy Dior Ordering Physician: Betsy DiorResults: 1Negative Date of Service: 11/20/24Follow Up: 1 Year From Orig ina Mammogram Procedure(s): MM tomosynthesis screening BI Accession Number(s): [id number] cc: Betsy Dior EXAMINATION: MM SCREENING DIGITAL [...] signed by Khadra Chapman DO in OV> 11/24/241953 DD/ 1455 TD/TT: 11/20/24 1507 Odd Bundle Worker: Betsy Dior GRADE TEACHER IMG BI PROCEDURES Edited Result - Final * Hm Colonoscopy (11/13/2018) Colonoscopy Normal Normal Narrative Thais Parra - 11/13/2018 Recommended 5 year follow up Historical Provider MD HEALTH MAINTENANCE Final Result from Last 3 Months or Most Recently Relevant to Health Maintenance Insurance [facility] ST[facility] [employer]P OPTIONS (HMO D-SNP) * Guarantor: Thais Olivera Account Type Relation to Patient Date of Phone Billing Address Personal/Family Self [address] [place] Care Teams Financial Administration Officer Relationship Specialty Start Date End Date Betsy Dior NP [address] [place] [address] PCP - General Family Medicine 06/21/23
--- OUTSIDE RECORDS SUMMARY | 2025-03-12 10:50 | XMS_ITS | Encounter Summary ---
Demographics Address [address] [place] [address] Mobile Phone Home Phone Preferred Language es Marital Status Single Hindu Affiliation Unknown Race Other Race Ethnic Group Unknown Author Organization [employer] Address [address] 7t [place] [address] Care Team Providers Care Fast Food Server Name Role Phone Betsy Dior NP Primary Care Provider [phone] Reason for Visit * Reason Comments Med Refill Encounter Details Date Type Department Care Team (Late Contact Info) Description 06/29/2023 Refill [facility] [address] [place], [place] [phone] Gokul Alcocer AGNP Type 2 diabetes mellitus without complication, unspecified whether parts counterman insulin use ([facility]) Social History Tobacco Use Types Packs/Day Years Used Date Smoking Tobacco: Never Assessed Comments Unknown Sex and Gender Information Value Date Recorded Sex Assigned at Female 04/18/2022 10:19 AM EDT Legal Sex Female 10:19 AM EDT Gender Identity Female 04/18/2022 10:19 AM EDT Sexual Orientation Straight 04/18/2022 10 :19 AM EDT documented as of this encounter Miscellaneous Notes * Telephone Encounter - Betsy Dior NP - 06/30/2023 5:02 PM EST Approving, but needs appt for additional refills. documented in this encounter Plan of Treatment Upcoming Encounters Date Type Department Care Team (Late st Contact Info) Description 03/17/2025 11:30 AM EDT Office Visit [facility] MEDICINE [address] [place], [place] [phone] Betsy Dior NP [address] [place], [place] [phone] 05/19/2025 3:30 PM EST Office Visit [facility] OPTOMETRY [address] [place], [place] [address] Nhi Mccrary OD [address] [place] [address] documented as of this encounter Visit Diagnoses Diagnosis Type 2 diabetes mellitus without complication, unspecified whether parts counterman insulin use ([facility]) documented in this encounter Care Teams Fast Food Server Relationship Specialty Start Date End Date Betsy Dior NP [address] [place], [place] [phone] PCP - General Family Medicine 06/21/23 documented as of this encounter
--- OUTSIDE RECORDS SUMMARY | 2025-03-12 10:50 | XMS_ITS | Encounter Summary ---
Author Organization [employer] Address [address] [place] [address] 7t [place] [address] Care Team Providers Care Measurement Psychologist Name Role Phone Dianelys Woods MD Primary Care Provider [phone] Betsy Dior NP Primary Care Provider [phone] Reason for Visit * Reason Comments Med Refill Encounter Details Date Type Department Care Team (Late st Contact Info) Description 06/05/[address] [facility] MEDICINE [address] [place] [address] Gokul Alcocer AGNP Hypertension, unspecified type Social History Tobacco Use Types Packs/Day Years [...] Encounters Date Type Department Care Team (Late Contact Info) Description 03/17/2025 11:30 AM EDT Office Visit [facility] MEDICINE [address] [place] [address] Betsy Dior NP [address] [place] [address] 05/19/2025 3:30 PM EST Office Visit [facility] OPTOMETRY [address] [place] [address] Hermann, Nhi, OD [address] [place] [address] documented as of this encounter Visit Diagnoses Diagnosis Hypertension, unspecified type documented in this encounter Care Teams Measurement Psychologist Relationship Specialty Start Date End Date Dianelys Woods MD [address] [place] [address] PCP - General Family Medicine 02/28/23 06/20/23 Betsy Dior NP [address] [place] [address] PCP - General Family Medicine 06/21/23 documented as of this encounter
--- OUTSIDE RECORDS SUMMARY | 2025-03-12 10:50 | XMS_ITS | Encounter Summary ---
Author Organization [employer] Address [address] [facility] 7t [place] [address] Care Team Providers Care Hog Ribber Name Role Phone Ovi Betsy EDWARDS Primary Care Provider [phone] Reason for Visit * Reason Comments Med Refill Encounter Details Date Type Department Care Team ([facility] st Contact Info) Description 03/07/2025 Refill [facility] MEDICINE [address] [place], [place] [phone] Robyn Paredes NP [address] [place], [place] [phone] Microalbuminuria Social History Tobacco Use Types Packs/Day Years [...] Description 03/17/2025 11:30 AM EDT Office Visit [facility] MEDICINE [address] [place] [address] Betsy Dior NP [address] [place] [address] 05/19/2025 3:30 PM EST Office Visit [facility] OPTOMETRY [address] [place] [address] Hermann, Nhi, OD [address] [place] [address] documented as of this encounter Visit Diagnoses Diagnosis Microalbuminuria Proteinuria documented in this encounter Additional Health Concerns Assessment Noted Time PHQ-9 Depression Total Score: 0 04/03/20 2:15 PM EDT documented as of this encounter Care Teams Hog Ribber Relationship Specialty Start Date End Date Betsy Dior NP [address] [place] [address] PCP - General Family Medicine 06/21/23 documented as of this encounter
--- OUTSIDE RECORDS SUMMARY | 2025-03-12 10:50 | XMS_ITS | Encounter Summary ---
Author Organization [employer] Address [address] [facility] 7t [place] [address] Care Team Providers Care Manual Winder Name Role Phone Betsy Dior NP Primary Care Provider [phone] Encounter Details Date Type Department Care Team ([facility] st Contact Info) Description 03/10/2025 Telephone [facility] MEDICINE [address] [place] [address] Betsy Dior NP [address] [place] [address] Social History Tobacco Use Types Packs/Day Years [...] encounter Miscellaneous Notes * Telephone Encounter - Estefani Medina RN - 03/10/2025 11:21 AM EDT T/C to pt via [employer] [facility] #[id number]. Pt reports that her home blood sugar readings have been good. Reports fasting sugars of 98, 108. Denies s/s of hypoglycemia. Agrees to have labs drawn prior to scheduled pcp f/u. * Telephone Encounter - Estefani Medina RN - 03/10/2025 11:11 AM EDT ----- Message from Betsy Dior sent at 03/07/2025 3:58 PM EDT ----- Received refill request for jardiance and Kerendia for this patient which are being used to manage microalbuminuria. Please call and assess her home glucose readings and if she is experiencing any symptoms of hypoglycemia as she has a history of this and is taking metformin and jardiance which alsoregulated blood sugars. Advise she have labs drawn prior to 03/17 office visit. Thank you documented in this encounter Plan of Treatment Upcoming Encounters Date Type Department Care Team (Late st Contact Info) Description 03/17/2025 11:30 AM EDT Office Visit [facility] MEDICINE [address] [place] [address] Betsy Dior NP [address] [place] [address] 05/19/2025 3:30 PM EST Office Visit [facility] OPTOMETRY [address] [place] [address] Nhi Mccrary, OD [address] [place] [address] documented as of this encounter Visit Diagnoses Not on filedocumented in this encounter Additional Health Concerns Assessment Noted Time PHQ-9 Depression Total Score: 0 04/03/20 2:15 PM EDT documented as of this encounter Care Teams Manual Winder Relationship Specialty Start Date End Date Betsy Dior NP [address] [place] [address] PCP - General Family Medicine 06/21/23 documented as of this encounter
--- OUTSIDE RECORDS SUMMARY | 2025-03-12 10:50 | XMS_ITS | Encounter Summary ---
Author Organization [employer] Address [address] [place] [address] 7t [place] [address] Care Team Providers Care Middle School Professional Name Role Phone Betsy Dior NP Primary Care Provider [phone] Reason for Visit * Reason Comments Med Refill Encounter Details Date Type Department Care Team (Late st Contact Info) Description 07/04/2023 Refill [facility] MED & PEDS [address] [place], [place] [phone] Gokul Alcocer AGNP Seasonal allergic rhinitis, unspecified [...] Description 03/17/2025 11:30 AM EDT Office Visit [facility] MEDICINE [address] [place] [address] Betsy Dior, GRACE [address] [place] [address] 05/19/2025 3:30 PM EST Office Visit [facility] OPTOMETRY [address] [place] [address] Nhi Mccrary, OD [address] [place] [address] documented as of this encounter Visit Diagnoses Diagnosis Seasonal allergic rhinitis, unspecified trigger documented in this encounter Care Teams Middle School Professional Relationship Specialty Start Date End Date Betsy Dior NP [address] [place] [address] PCP - General Family Medicine 06/21/23 documented as of this encounter
--- OUTSIDE RECORDS SUMMARY | 2025-03-12 10:50 | XMS_ITS | Encounter Summary ---
Author Organization [facility] [facility] Address [address] [facility] 7t [place] [address] Care Team Providers Care Belt Buckle Maker Name Role Phone Betsy Dior NP Primary Care Provider [phone] Reason for Visit * Reason Comments Med Refill Encounter Details Date Type Department Care Team (Late st Contact Info) Description 07/03/2023 Refill [facility] MEDICINE [address] [place] [address] Gokul Alcocer AGNP Acquired hypothyroidism; Seasonal allergic rhinitis, unspecified trigger Social History [...] Telephone Encounter - Betsy Dior NP - 07/06/2023 10:40 AM EST Approving, but needs appt for additional refills. documented in this encounter Plan of Treatment Upcoming Encounters Date Type Department Care Team (Late st Contact Info) Description 03/17/2025 11:30 AM EDT Office Visit [facility] MEDICINE [address] [place] [address] Betsy Dior NP [address] [place] [address] 05/19/2025 3:30 PM EST Office Visit [facility] OPTOMETRY [address] [place] [address] Nhi Mccrary, OD [address] [place], [place] [phone] documented as of this encounter Visit Diagnoses Diagnosis Acquired hypothyroidism Unspecified hypothyroidism Seasonal allergic rhinitis, unspecified trigger documented in this encounter Care Teams Belt Buckle Maker Relationship Specialty Start Date End Date Betsy Dior NP [address] [place], [place] [phone] PCP - General Family Medicine 06/21/23 documented as of this encounter
--- OUTSIDE RECORDS SUMMARY | 2025-03-12 10:50 | XMS_ITS | Encounter Summary ---
Author Organization [employer] Address [address] [facility] 7t [place] [address] Care Team Providers Care Farm Or Ranch Animal Caretaker Name Role Phone Dianelys Woods MD Primary Care Provider [phone] Betsy Dior NP Primary Care Provider [phone] Encounter Details Date Type Department Care Team (Late st Contact Info) Description 05/02/2023 Abstract [facility] MEDICINE [address] [place] [address] Dianelys Woods MD [address] [place] [address] Social History Tobacco Use Types Packs/Day Years [...] Description 03/17/2025 11:30 AM EDT Office Visit [facility] MEDICINE [address] [place] [address] Betsy Dior NP [address] [place] [address] 05/19/2025 3:30 PM EST Office Visit [facility] OPTOMETRY [address] [place] [address] HermannNhi pimentel, OD [address] [place] [address] documented as of this encounter Procedures Procedure Name Priority Date/Time Associated Diagnosis Comments COLONOSCOPY Routine 11/13/2018 documented in this encounter Results * Colonoscopy (11/13/2018) Colonoscopy Normal Normal Narrative Thais Parra - 11/13/2018 Recommended 5 year follow up Historical Provider HEALTH MAINTENANCE Final Result documented in this encounter Visit Diagnoses Not on filedocumented in this encounter Care Teams Farm Or Ranch Animal Caretaker Relationship Specialty Start Date End Date Dianelys Woods MD [address] [place] [address] PCP - General Family Medicine 02/28/23 06/20/23 Betsy Dior NP [address] [place] [address] PCP - General Family Medicine 06/21/23 documented as of this encounter
--- OUTSIDE RECORDS SUMMARY | 2025-03-12 10:50 | XMS_ITS | Encounter Summary ---
Author Organization [employer] Address [address] [facility] 7t [place] [address] Care Team Providers Care Operations Systems Specialist Name Role Phone Betsy Dior NP Primary Care Provider [phone] Reason for Visit * Reason Comments Med Refill Encounter Details Date Type Department Care Team (Late st Contact Info) Description 03/07/2025 Refill [facility] MEDICINE [address] [place] [address] Betsy Dior NP [address] [place] [address] Osteopenia of neck of femur, unspecified laterality; Microalbuminuria Social History Tobacco Use Types Packs/Day [...] Description 03/17/2025 11:30 AM EDT Office Visit [facility] MEDICINE [address] [place] [address] Betsy Dior NP [address] [place] [address] 05/19/2025 3:30 PM EST Office Visit [facility] OPTOMETRY [address] [place] [address] Hermann, Nhi, OD [address] [place] [address] documented as of this encounter Visit Diagnoses Diagnosis Osteopenia of neck of femur, unspecified laterality Microalbuminuria Proteinuria documented in this encounter Additional Health Concerns Assessment Noted Time PHQ-9 Depression Total Score: 0 04/03/20 24 2:15 PM EDT documented as of this encounter Care Teams Operations Systems Specialist Relationship Specialty Start Date End Date Betsy Dior NP [address] [place] [address] PCP - General Family Medicine 06/21/23 documented as of this encounter
--- OUTSIDE RECORDS SUMMARY | 2025-03-12 10:50 | XMS_ITS | Encounter Summary ---
Author Organization [employer] Address [address] [facility] 7t [place] [address] Care Team Providers Care Seo Associate Name Role Phone Betsy Dior NP Primary Care Provider [phone] Reason for Visit * Reason Comments Pre-visit Planning SDOH was already com pleted Encounter Details Date Type Department Care Team (Late st Contact Info) Description 03/07/2025 Patient Outreach [facility] MED & PEDS [address] [place], [place] [phone] Betsy Dior NP [address] [place] [address] Pre-visit Planning (SDOH was already completed) Social History Tobacco Use Types Packs/Day Years [...] AM EDT documented as of this encounter Progress Notes * Faby Lawson - 03/07/2025 4:00 PM EDT CC Faby Hastings placed successful outbound call to patient for pre-visit planning. Patient name and confirmed. Patient confirms appt date and time, and has transportation arrangements. Biggest concern for appointment at this time is no concerns. Appropriate screenings completed in anticipation ofappointment. documented in this encounter Plan of Treatment Upcoming Encounters Date Type Department Care Team (Late st Contact Info) Description 03/17/2025 11:30 AM EDT Office Visit [facility] MEDICINE [address] [place] [address] Betsy Dior NP [address] [place] [address] 05/19/2025 3:30 PM EST Office Visit [facility] OPTOMETRY [address] [place] [address] Nhi Mccrary OD [address] [place] [address] documented as of this encounter Visit Diagnoses Not on filedocumented in this encounter Additional Health Concerns Assessment Noted Time PHQ-9 Depression Total Score: 0 04/03/20 24 2:15 PM EDT documented as of this encounter Care Teams Seo Associate Relationship Specialty Start Date End Date Betsy Dior NP [address] [facility] [place] [address] PCP - General Family Medicine 06/21/23 documented as of this encounter
[2025-03-12 12:31] LABS: Hemoglobin A1C 276.7044 umol/L; Total Hemoglobin (HGBA1C) 4939.4791 umol/L
[2025-03-12 12:39] LABS: Anion Gap 13 (12-20); Blood Urea Nitrogen 17 mg/dL (9-16); Calcium 9.5 mg/dL (8.4-10.2); Carbon Dioxide 28 mmol/L (22-29); Chloride 103 mmol/L (96-108); Estimated Glomerular Filt Rate > 60; Potassium 4.7 mmol/L (3.3-5.1); Sodium 139 mmol/L (135-145)
== END 2025-03-12 09:15 | disposition home or self-care (01) ==
LOC: HO.HHCL 09:14
PROVIDERS: PCP Nurse Practitioner; Visit Provider Nurse Practitioner
DX: E11.9 Type 2 diabetes mellitus without complications (principal); R80.9 Proteinuria, unspecified; I10 Essential (primary) hypertension
CPT/HCPCS: 36415; 80048; 83036

== ENCOUNTER 2025-06-18 09:13 | Outpatient (REF) | payer OTHER, SELFPAY ==
--- OUTSIDE RECORDS SUMMARY | 2025-06-18 09:25 | XMS_ITS | Encounter Summary ---
Author Organization [employer] Address [address] [place] [address] 7t [place] [address] Care Team Providers Care Criminal Justice Program Director Name Role Phone Betsy Dior NP Primary Care Provider [phone] Reason for Visit * Reason Comments Med Refill Encounter Details Date Type Department Care Team (Late st Contact Info) Description 07/04/2023 Refill [facility] MED & PEDS [address] [place], [place] [phone] Gokul Alcocer AGNP Seasonal allergic rhinitis, unspecified [...] Care Team (Late st Contact Info) Description 06/18/2025 11:30 AM EST Office Visit [facility] MEDICINE [address] [place] [address] Betsy Dior NP [address] [place] [address] 07/17/2025 8:45 AM EST Office Visit [facility] DENTAL [address] [place] [address] Adriana, Flor [address] [place] [address] 09/15/2025 1:30 PM EDT Office Visit [facility] OPTOMETRY [address] [place] [address] Nhi Mccrary, OD [address] [place] [address] documented as of this encounter Visit Diagnoses Diagnosis Seasonal allergic rhinitis, unspecified trigger Type 2 diabetes mellitus without complication, without long-term current use of insulin (HCC)- Primary Primary hypertension Unspecified essential hypertension documented in this encounter Care Teams Criminal Justice Program Director Relationship Specialty Start Date End Date Betsy Dior NP [address] [place] [address] PCP - General Family Medicine 06/21/23 documented as of this encounter
--- OUTSIDE RECORDS SUMMARY | 2025-06-18 09:25 | XMS_ITS | Clinical Summary ---
Demographics Address [address] [place] [address] Mobile Phone Home Phone Preferred Language es Marital Status Single Oriental Orthodox Affiliation Unknown Race Other Race Ethnic Group Unknown Author Organization [employer] Address [address] [facility] 7[address] [place] [address] Care Team Providers Care Assignment Agent Name Role Phone Betsy Dior GRACE Primary Care Provider [phone] Allergies No known active allergies Medications lidocaine (Lidoderm) 5 % patch Place 1 patch on the skin at bed time. 03/07/20 22 Active glucagon (Baqsimi One Pack) 3 MG/DOSE nasal powderIndicatio ns:Type 2 diabetes mellitus without complication, without long-term current use of insulin (HCC) Administer 3 mg into affected nostril(s) 1 (one) time if needed for low blood sugar. 1 each 1 02/28/20 24 Active ondansetron (Zofran) 4 MG tabletIndicatio ns:Nausea Take 1 tablet (4 mg) by mouth every 8 (eight) hours if needed for nausea or vomiting for up to 10 doses. 10 tablet 06/28/19 25 Active Diclofenac Sodium 1 % gelIndications: Pain in both wrists Apply 1 Application topically if needed in the morning, at noon, and at bedtime (pain). 100 g 1 06/28/19 25 Active TRUEplus Lancets 33G miscIndications :Type 2 diabetes mellitus without complication, unspecified whether custodial insulin use TEST BLOOD SUGAR TWICE DAILY OR DIRECTED 100 each 5 12:32 PM EST 10/25/19 25 Active glucose blood (FREESTYLE LITE) test stripIndication s:Type 2 diabetes mellitus without complication, unspecified whether custodial insulin use TEST BLOOD SUGAR TWICE DAILY OR DIRECTED 100 strip 5 12:32 PM EST 10/25/19 25 Active hydrocortisone (Anusol-HC) 2.5 % rectal cream Insert into the rectum 2 times daily. 28 g 2 12/03/19 25 Active Calcium 600/Vitamin D3 600-20 MG-MCG tabletIndicatio ns:Osteopenia of neck of femur, unspecified laterality TAKE 1 TABLET BY MOUTH TWICE DAILY IN THE MORNING AND IN THE EVENING WITH FOOD 60 tablet 3 03/11/20 25 Active empagliflozin (Jardiance) 10 MGIndications:M icroalbuminuria TAKE 1 TABLET BY MOUTH EVERY MORNING 30 tablet 3 5 12:32 PM EST 03/11/20 25 Active hydrocortisone 2.5 % creamIndication s:Rash Apply topically 2 times daily. 28 g 03/17/20 25 Active melatonin 5 MG tablet Take 2 tablets (10 mg) by mouth at bedtime. 60 tablet 3 5 12:32 PM EST 04/10/20 25 Active omeprazole (PriLOSEC) [address] capsule take 1 capsule by oral route every day before a meal 90 capsule 3 04/10/20 25 Active lisinopril 40 MG tabletIndicatio ns:Hypertension , unspecified type Take 1 tablet (40 mg) by mouth Once per day. 90 tablet 3 04/10/20 25 026 Active Ascorbic Acid (vitamin C) 500 MG tablet TAKE 2 TABLETS BY MOUTH ONCE DAILY IN THE MORNING 180 tablet 1 04/10/20 25 Active aspirin (Aspirin Low Dose) 81 MG EC tablet TAKE 1 TABLET BY MOUTH AT BEDTIME 90 tablet 1 04/10/20 25 Active loratadine (Claritin) 10 MG tabletIndicatio ns:Seasonal allergic rhinitis, unspecified trigger TAKE 1 TABLET BY MOUTH ONCE DAILY NEEDED FOR ALLERGIES 90 tablet 1 04/10/20 25 Active folic acid (Folvite) 1 MG tablet TAKE 1 TABLET BY MOUTH EVERYDAY AT NOON 90 tablet 1 04/10/20 25 Active atorvastatin (Lipitor) 40 MG tablet Take 1 tablet (40 mg) by mouth at bedtime. 90 tablet 04/10/20 25 Active levothyroxine (Synthroid, Levoxyl) 125 MCG tabletIndicatio ns:Hypothyroidi sm, unspecified type TAKE 1 TABLET BY MOUTH EVERY MORNING ON AN EMPTY STOMACH 30-60 MINUTES BEFORE MEALS 90 tablet 04/10/20 25 Active amLODIPine (Norvasc) 10 MG tabletIndicatio ns:Hypertension , unspecified type Take 1 tablet (10 mg) by mouth Once per day. 90 tablet 04/10/20 25 Active Kerendia 20 MG tabletIndicatio ns:Microalbumin uria TAKE 1 TABLET BY MOUTH ONCE DAILY 30 tablet 2 5 12:32 PM EST 06/02/20 25 Active metFORMIN (Glucophage) 500 MG tabletIndicatio ns:Type 2 diabetes mellitus without complication, without long-term current use of insulin (HCC) TAKE 1 TABLET BY MOUTH TWICE DAILY AT NOON AND BEDTIME WITH MEALS 180 tablet 1 5 12:32 PM EST 06/09/20 25 Active Kerendia 20 MG tabletIndicatio ns:Microalbumin uria TAKE 1 TABLET BY MOUTH EVERY DAY 30 tablet 2 5 2:38 PM EST 03/11/20 25 025 Discontinued metFORMIN (Glucophage) 500 MG tabletIndicatio ns:Type 2 diabetes mellitus without complication, without long-term current use of insulin (HCC) TAKE 1 TABLET BY MOUTH TWICE DAILY AT NOON AND BEDTIME WITH MEALS 180 tablet 03/17/20 25 025 Discontinued Active Problems Problem Noted Date Diagnosed Date [...] PM EDT): -pt reports having hysterectomy at [facility] in 2010; believes cervix was also [...] ogram for malignant neoplasm of breast 08/09/2023 Food insecurity 08/20/2018 Varicose veins of lower extremity 03/28/2018 Microalbuminuria 11/04/2013 Assessment & Plan (03/20/2025 12:31 PM EDT): -managed with Jardiance 10 mg and Kerendia 20 mg w/ noted improvement. No medication side effects reported -ordered repeat testing to be completed prior to follow-up in 3 months Assessment & Plan (02/13/2025 3:57 PM EDT): [...] mg two times daily Assessment & Plan (03/20/2025 12:27 PM EDT): -Pt's diabetes is stable -Pt is on an montez, hgb A1c at goal of <8% -Pt is to continue on metformin 500 mg two times daily and Jaridance 10 mg daily -ASCVD risk score unable to calculate as total cholesterol <130 mg/dL -diet and lifestyle modifications reviewed -follow-up 3 months Assessment & Plan (02/13/2025 4:01 PM EDT): [...] with results Hypertension 03/06/2012 Assessment & Plan (03/20/2025 12:29 PM EDT): -Hypertension stable and no significant medication side effects noted. -Current treatment (lisinopril 40 mg and amlodipine 10 mg) plan is effective, no change in therapy. -Repeat labs ordered prior to next appointment. -Reviewed diet, exercise and weight control Assessment & Plan (02/13/2025 3:51 PM EDT): [...] levothyroxine 112 mcg -TSH ordered for re-evaluation Resolved Problems Problem Noted Date Diagnosed Date Resolved Date Bilateral impacted cerumen 08/09/2023 1 Assessment & Plan (08/09/2023 3:19 PM EST): -rx for debrox sent to pharmacy -daily ear cleaning with towel following shower advised Encounters Date Type Department Care Team Description 06/17/2025 Telephone [facility] [address] [place] [address] Betsy Dior NP CHARTPREP 06/08/2025 Refill [facility] [address] [place] [address] Betsy Dior NP Type 2 diabetes mellitus without complication, without long-term current use of insulin (HCC) 05/31/2025 Refill [facility] [address] [place] [address] Betsy Dior NP Microalbuminuria 05/14/2025 Travel 04/13/2025 Refill [facility] [address] [place] [address] Name, MD Rene 04/10/2025 Refill [facility] [address] [place] [address] Maria FernandamBetsy, DATA ENTRY SUPERVISOR Hypertension, unspecified type; Seasonal allergic rhinitis, unspecified trigger; Hypothyroidism, unspecified type 04/10/2025 Telephone [facility] [address] [place] [address] Betsy Doir NP 03/26/2025 Telephone [facility] [address] [place] [address] AppramBetsy, DATA ENTRY SUPERVISOR may recall from Last 3 Months Immunizations Immunization Administration Dates Next Due Hep B, adult 12/15/2010,04/01/2008,02/29/2008 Influenza High-dose Quadriva lent Preservative Free 04/06/2023,03/07/2022,03/17/2021,03/10 Influenza injectable quadriv alent IIV4 with preservative 03/28/2018,08/08/2017,05/08/2015 Influenza injectable quadriv alent preservative free 07/04/2019,07/11/2016 Influenza, High Dose Seasona l, Preservative Free 03/17/2025,02/28/2024 Influenza, IIV3, injectable 05/09/2014, 1 Influenza, Split [...] Sign Reading Time Taken Comments Blood Pressure 120/58 03/17/2025 11:41 AM EDT Pulse 76 03/17/2025 11:41 AM EDT Temperature 37.2 C (98.9 F) 03/17/2025 11:41 AM EDT Respiratory Rate 20 03/17/2025 11:41 AM EDT Oxygen Saturation 98% 12/02/2024 1:28 PM EDT Inhaled Oxygen Concentration - - Weight 65.1 kg (143 lb 9.6 oz) 03/17/2025 11:41 AM EDT Height 154.9 cm (5' 1 ) 12/02/2024 1:28 PM EDT Body Mass Index 27.13 12/02/2024 1:28 PM EDT Plan of Treatment Upcoming Encounters Date Type Department Care Team (Late st Contact Info) Description 06/18/2025 11:30 AM EST Office Visit [facility] [address] [place] [address] Betsy Dior NP [address] [place] [address] 07/17/2025 8:45 AM EST Office Visit [facility] ADULT DENTAL [address] [place] [address] Adriana, Flor [address] [place] [address] 09/15/2025 1:30 PM EDT Office Visit [facility] OPTOMETRY [address] [place] [address] Hermann, Nhi, OD [address] [place] [address] Health Maintenance Due Date Last Done Comments CT Colonography 1955 FIT DNA/Cologuard 1955 FIT 1955 FOBT 1955 Sigmoidoscopy 1955 Alcohol/Substance Use Screening 1966 Colonoscopy 11/14/2023 11/13/2018 Colorectal Cancer Screening 11/14/2023 COVID-19 Vaccine ( season) 2025 04/03/2024, 05/24/2021, 09/14/2020, Additional history exists Depression Screening 04/03/2025 04/03/2024, 04/03/20 24 Diabetes: Hemoglobin A1C 06/11/2025 025, 11/27/2024, 02/28/2024, Additional history exists Diabetes: Urine Protein Screening 11/27/2025 11/27/2024, 02/28/2024, 11/24/2023, Additional history exists Lipid Panel 11/27/2025 11/27/2024, 07/21, 09/29/2021, Additional history exists SDOH Screening 12/02/2025 12/02/2024 Eye Exam 03/07/2026 03/07/2024, 02/17, 03/07/2024, Additional history exists Diabetes: Foot Exam 03/17/2026 03/17/2025, 03/17/2025, 03/17/2025, Additional history exists Tobacco Screening 03/20/2026 03/20/2025 Mammogram 11/20/2026 11/20/2024, 08/18, 12/11/2020, Additional history exists RSV Patients and Patients Aged 60 years or older (1 - 1-dose 75+ series) 2029 DTaP/Tdap/Td Vaccines (3 - Td or Tdap) 03/07/2032 03/07/2022, 03/06/2012, 03/06/2007 Hepatitis B Vaccines Completed 12/15/2010, 04/01/2008, 02/29/2008 Zoster Vaccines Completed 07/24/2020, 02/18, 10/20/2014 Pneumococcal Vaccine: 50+ Years Completed 08/09/2023, 03/17/2021, 03/10/2020, Additional history exists Influenza Vaccine Completed 03/17/2025, , 04/06/2023, Additional history exists HIB Vaccines Aged Out No longer eligi ble based on patient's age to complete this topic HPV Vaccines Aged Out No longer eligi ble based on patient's age to complete this topic Hepatitis A Vaccines Aged Out No long er eligible based on patient's age to complete [...] on patient's age to complete this topic Goals Goal Patient Goal Type Associated Problems Recent Progress Patient-Stated? Author Help patients manage their type 2 diabetes Care Plan Help patients manage their type 2 diabetes No Alee Jordan MA Weekly blood pressure task Care Plan Weekly blood pressure task No Alee Jordan MA Help patients manage their type 2 diabetes Care Plan Help patients manage their type 2 diabetes No Alee Jordan MA Patient has chronic kidney disease Care Plan Patient has chronic kidney disease No Alee oJrdan MA Weekly blood pressure task Care Plan Weekly blood pressure task No Alee Jordan MA Patient has chronic kidney disease Care Plan Patient has chronic kidney disease No Alee Jordan MA Weekly blood pressure task Care Plan Weekly blood pressure task No Betsy Dior NP Weekly blood pressure task Care Plan Weekly blood pressure task No Betsy Dior NP Patient has chronic kidney disease Care Plan Patient has chronic kidney disease No Betsy Dior NP Patient has chronic kidney disease Care Plan Patient has chronic kidney disease No Betsy Dior NP Procedures Procedure Name Priority Date/Time Associated Diagnosis Comments HEMOGLOBIN A1C Routine 03/12/2025 9:18 AM EDT Type 2 diabetes mellitus without complication, without long-term current use of insulin ([facility]) ALBUMIN, RANDOM URINE W/CREATININE Routine 11/27/2024 9:46 AM EDT Type 2 diabetes mellitus without complication, without long-term current use of insulin ([facility]) Primary hypertension LIPID PANEL, STANDARD Routine 11/27/2024 9:46 AM EDT Type 2 diabetes mellitus without complication, without long-term current use of insulin ([facility]) Primary hypertension BI MAMMOGRAM SCREENING TOMOSYNTHESIS BILATERAL Routine 11/20/2024 2:55 PM EDT HM COLONOSCOPY Routine 11/13/2018 from Last 3 Months or Most Recently Relevant to Health Maintenance Results * (ABNORMAL) Hemoglobin A1c (03/12/2025 9:18 AM EDT) Hemoglobin A1c 7.3(H) <6.0 % [facility] Comment:Hemoglobin A1C Refer ence Range Adults: 4.8 - 6.0 % Non diabetic: < 6.0 % Goal: < 7.0 %Additional Action Suggested: > 8.0 %Note: Hemoglobin A1c results are invalid for patients with abnormal amounts of HbF. Blood transfusions may impact the HbA1c concentration in the patient sample. Estimated Average Glucose 163 mg/dL [facility] Comment:eAG = Estimated ave rage glucose which is %A1C expressed asaverage glucose, using the formula of the H2T-OgidjczIfjmusl Glucose study (ADAG), Diabetes Care, Vol.31,#8,Jan. 2007 Blood Venous blood specimen / Unknown 03/12/2025 9:18 AM EDT 03/12/2025 11:28 AM EDT [employer] DATA ENTRY SUPERVISOR LAB BLOOD ORDERABLES Final Resu lt Performing Organization Address [facility] Co de Phone Number [facility] [address] [place] [phone] * (ABNORMAL) Albumin, Random Urine W/Creatinine (11/27/2024 9:46 AM EDT) Creatinine, Urine 94.27 mg/dL [facility] Microalbumin Urine 52.0 mg/L H [facility] Microalbum Creatinine Ratio Ur 55.1(H) <30 ug/mg cr [facility] Comment:Albumin/Creatinine R atio Reference Ranges: Normal: < 30 ug/mg creatinine Microalbuminuria: 30 - 300 ug/mg creatinineClinical Albuminuria: > 300 ug/mg creatinine Urine (Urine, Random) 11/27/2024 9:46 AM EDT 11/27/2024 11:14 AM EDT [employer] DATA ENTRY SUPERVISOR LAB URINE ORDERABLES Final Resu lt Performing Organization Address [facility]/ZIP Co de Phone Number [facility] [address] [place] [address] [place] [address] [phone] * Lipid Panel, Standard (11/27/2024 9:46 AM EDT) Triglycerides 92 <150 mg/dL [facility] Comment:Desirable Triglyceri de: less than 150 mg/dLBorderline High Triglyceride 150-199 mg/dLHigh Triglyceride: 200-499 mg/dLVery High Triglyceride: greater than or equal to 5OO mg/dL Cholesterol 116 <200 mg/dL [facility] Comment:Desirable Cholestero l: less than 200 mg/dLBorderline High Cholesterol: 200-239 mg/dLHigh Cholesterol: greater than 239 mg/dL LDL Cholesterol Calculated 50 <100 mg/dL [facility] Comment:Desirable LDL: less than 100 mg/dLNear Optimal/Above Optimal LDL: 110- 129 mg/dLBorderline High LDL: 130-159 mg/dLHigh LDL: 160-189 mg/dLVery High LDL: greater than or equal to 190 mg/dL HDL Cholesterol 48 >40 mg/dL [facility] Comment:Desirable HDL: great er than 40 mg/dL Note: This HDL assay may give artificially low results in patients with liver disease. Blood Venous blood specimen / Unknown 11/27/2024 9:46 AM EDT 11/27/2024 11:20 AM EDT us Betsy Dior NP LAB BLOOD ORDERABLES Final Resu lt [facility] [address] [place] [address] [phone] * BI Mammogram Screening Tomosynthesis Bilateral (11/20/2024 2:55 PM EDT) Anatomical Region Laterality Modality Breast Bilateral Mammography 11/20/2024 2:55 PM EDT Narrative 11/24/2024 7:57 PM EDT [facility] [address] [place] [address] Mammography Report Signed Patient: Thais Olivera MR#: [id number] : 1955 Acct:[id number] Age/Sex: 69 / F ADM Date: 11/20/24 Loc: MAMMO Attending Dr: Betsy Dior Ordering Physician: Betsy Dior Results: 1Negative Date of Service: 11/20/24 Follow Up: 1 Year From Orig ina Mammogram Procedure(s): MM tomosynthesis screening BI Accession Number(s): [id number] cc: Betsy Dior EXAMINATION: MM SCREENING DIGITAL [...] OV> 11/24/241953 DD/ 1455 TD/TT: 11/20/24 1507 Sports Nutritionist: Procedure Note Donotuseinterpreter, Image - 11/24/2024 Saroj [facility] [address] [place], [place] [address] Mammography Report Signed Patient: Thais Olivera#: [id number] : 5Acct:[id number] Age/Sex: 69 / FADM Date: 11/20/24 Loc: MAMMO Attending Dr: Betsy Dior Ordering Physician: Betsy DiorResults: 1Negative Date of Service: 11/20/24Follow Up: 1 Year From Orig ina Mammogram Procedure(s): MM tomosynthesis screening BI Accession Number(s): [id number] cc: Betsy Dior EXAMINATION: MM SCREENING DIGITAL [...] Khadra Chapman DO 11/24/2024 07:54 PM EDT RP Dictated By: Khadra Chapman DO Signed By: <Electronically signed by Khadra Chapman DO in OV> 11/24/241953 DD/ 1455 TD/TT: 11/20/24 1507 Sports Nutritionist: Betsy Dior DATA ENTRY SUPERVISOR IMG BI PROCEDURES Edited Result - Final * Hm Colonoscopy (11/13/2018) Colonoscopy Normal Normal Narrative Thais Parra - 11/13/2018 Recommended 5 year follow up Historical Provider MD HEALTH MAINTENANCE Final Result from Last 3 Months or Most Recently Relevant to Health Maintenance Additional Health Concerns Active Problems Noted Date Diagnosed Date Help patients manage their type 2 diabetes 06/17 Weekly blood pressure task 06/17/2025 Help patients manage their type 2 diabetes 06/17 Patient has chronic kidney disease 06/17/2025 Weekly blood pressure task 06/17/2025 Patient has chronic kidney disease 06/17/2025 Weekly blood pressure task 06/18/2025 Weekly blood pressure task 06/18/2025 Patient has chronic kidney disease 06/18/2025 Patient has chronic kidney disease 06/18/2025 Insurance [facility] [employer] (HMO D-SNP) [address] [place] [address] [facility] [address] [place] [address] [address] [place] [address] Care Teams Assignment Agent Relationship Specialty Start Date End Date Betsy Dior NP [address] [place] [phone] PCP - General Family Medicine 06/21/23
--- OUTSIDE RECORDS SUMMARY | 2025-06-18 09:25 | XMS_ITS | Encounter Summary ---
Author Organization [employer] Address [address] [facility] 7[address] [place] [address] Care Team Providers Care Associate Brand Manager Name Role Phone Dianelys Woods MD Primary Care Provider [phone] Betsy Dior NP Primary Care Provider [phone] Encounter Details Date Type Department Care Team (Late st Contact Info) Description 05/02/2023 Abstract [facility] [address] [place] [address] Dianelys Woods MD [address] [place] [address] Social History Tobacco Use Types Packs/Day Years [...] Description 06/18/2025 11:30 AM EST Office Visit [facility] [address] [place] [address] Betsy Dior NP [address] [place] [address] 07/17/2025 8:45 AM EST Office Visit [facility] [address] [place] [address] Flor Wright [address] [place] [address] 09/15/2025 1:30 PM EDT Office Visit [facility] [address] [place] [address] Nhi Mccrary, ALVERTO [address] [place] [address] documented as of this encounter Procedures Procedure Name Priority Date/Time Associated Diagnosis Comments COLONOSCOPY Routine 11/13/2018 documented in this encounter Results * Hm Colonoscopy (11/13/2018) Colonoscopy Normal Normal Narrative Thais Parra - 11/13/2018 Recommended 5 year follow up Historical Provider HEALTH MAINTENANCE Final Result documented in this encounter Visit Diagnoses Not on filedocumented in this encounter Care Teams Associate Brand Manager Relationship Specialty Start Date End Date Dianelys Woods MD [address] [place] [address] PCP - General Family Medicine 02/28/23 06/20/23 Betsy Dior NP [address] [place] [address] PCP - General Family Medicine 06/21/23 documented as of this encounter
--- OUTSIDE RECORDS SUMMARY | 2025-06-18 09:25 | XMS_ITS | Encounter Summary ---
Author Organization [employer] Address [address] [place] [address] 7t [place] [address] Care Team Providers Care Rand Tacker Name Role Phone Dianelys Woods MD Primary Care Provider [phone] Betsy Dior NP Primary Care Provider [phone] Reason for Visit * Reason Comments Med Refill Encounter Details Date Type Department Care Team (Late st Contact Info) Description 06/05/2023 Refill [facility] [address] [place] [address] Gokul Alcocer AGNP Hypertension, unspecified type Social [...] Description 06/18/2025 11:30 AM EST Office Visit [facility] [address] [place] [address] Betsy Dior NP [address] [place] [address] 07/17/2025 8:45 AM EST Office Visit [facility] ADULT DENTAL [address] [place] [address] Adriana Flor [address] [place] [address] 09/15/2025 1:30 PM EDT Office Visit [facility] [address] [place], [place] [phone] Hermann, Nhi, OD [address] [place] [address] documented as of this encounter Visit Diagnoses Diagnosis Hypertension, unspecified type Type 2 diabetes mellitus without complication, without long-term current use of insulin (HCC)- Primary Primary hypertension Unspecified essential hypertension documented in this encounter Care Teams Rand Tacker Relationship Specialty Start Date End Date Dianelys Woods MD [address] [place] [address] PCP - General Family Medicine 02/28/23 06/20/23 Betsy Dior NP [address] [place] [address] PCP - General Family Medicine 06/21/23 documented as of this encounter
--- OUTSIDE RECORDS SUMMARY | 2025-06-18 09:25 | XMS_ITS | Encounter Summary ---
Author Organization [employer] [facility] Address [address] [facility] [address] [place] [address] Care Team Providers Care Tack Cleaner Name Role Phone Betsy Dior NP Primary Care Provider [phone] Reason for Visit * Reason Comments Med Refill Encounter Details Date Type Department Care Team (Late st Contact Info) Description 07/03/2023 Refill [facility] [address] [place] [address] Gokul Alcocer AGNP Acquired hypothyroidism; Seasonal allergic [...] Description 06/18/2025 11:30 AM EST Office Visit [facility] [address] [place] [address] Betsy Dior NP [address] [place] [address] 07/17/2025 8:45 AM EST Office Visit [facility] ADULT DENT[facility] [address] [place] [address] Adriana, Flor [address] [place] [address] 09/15/2025 1:30 PM EDT Office Visit [facility] OPTOMETRY [address] [place] [address] Hermann, Nhi, OD [address] [place] [address] documented as of this encounter Visit Diagnoses Diagnosis Acquired hypothyroidism Unspecified hypothyroidism Seasonal allergic rhinitis, unspecified trigger Type 2 diabetes mellitus without complication, without long-term current use of insulin (HCC)- Primary Primary hypertension Unspecified essential hypertension documented in this encounter Care Teams Tack Cleaner Relationship Specialty Start Date End Date Betsy Dior NP [address] [place] [address] PCP - General Family Medicine 06/21/23 documented as of this encounter
--- OUTSIDE RECORDS SUMMARY | 2025-06-18 09:25 | XMS_ITS | Encounter Summary ---
Author Organization [employer] Address [address] [facility] [address] [place] [address] Care Team Providers Care Thoracic Medicine Specialist Name Role Phone Betsy Dior GRACE Primary Care Provider [phone] Reason for Visit * Reason Comments Med Refill Encounter Details Date Type Department Care Team ([facility] st Contact Info) Description 04/13/2025 Refill [facility] CHC MED & PEDS [address] [place], [place] [id number] Name, MD Rene [address] [place] [address] Social History Tobacco Use Types Packs/Day Years [...] Description 06/18/2025 11:30 AM EST Office Visit [facility] MEDICINE [address] [place] [address] Betsy Dior NP [address] [place] [address] 07/17/2025 8:45 AM EST Office Visit [facility] ADULT DENTAL [address] [place] [address] Adriana, Flor [address] [place] [address] 09/15/2025 1:30 PM EDT Office Visit [facility] OPTOMETRY [address] [place] [address] Hermann, Nhi, OD [address] [place] [address] documented as of this encounter Visit Diagnoses Not on filedocumented in this encounter Additional Health Concerns Assessment Noted Time PHQ-9 Depression Total Score: 0 04/03/20 24 2:15 PM EDT documented as of this encounter Care Teams Thoracic Medicine Specialist Relationship Specialty Start Date End Date Betsy Dior NP [address] [place] [address] PCP - General Family Medicine 06/21/23 documented as of this encounter
--- OUTSIDE RECORDS SUMMARY | 2025-06-18 09:25 | XMS_ITS | Encounter Summary ---
Demographics Address [address] [place] [address] Mobile Phone Home Phone Preferred Language es Marital Status Single Protestant Affiliation Unknown Race Other Race Ethnic Group Unknown Author Organization [employer] Address [address] [facility] [address] [place] [address] Care Team Providers Care Metal Furniture Polisher Name Role Phone Betsy Dior NP Primary Care Provider [phone] Reason for Visit * Reason Comments Med Refill Encounter Details Date Type Department Care Team (Late st Contact Info) Description 06/29/2023 Refill [facility] CHC MED & PEDS [address] [place], [place] [phone] Gokul Alcocer AGNP Type 2 diabetes mellitus without complication, unspecified whether terminologist insulin use ([facility]) Social History Tobacco Use Types Packs/Day Years [...] Description 06/18/2025 11:30 AM EST Office Visit [facility] MEDICINE [address] [place], [place] [phone] Betsy Dior NP [address] [place], [place] [phone] 07/17/2025 8:45 AM EST Office Visit [facility] ADULT DENTAL [address] [place] [address] Adriana, Flor [address] [place] [address] 09/15/2025 1:30 PM EDT Office Visit [facility] OPTOMETRY [address] [place] [address] Hermann, Nhi, OD [address] [place] [address] documented as of this encounter Visit Diagnoses Diagnosis Type 2 diabetes mellitus without complication, unspecified whether terminologist insulin use Type 2 diabetes mellitus without complication, without long-term current use of insulin (HCC)- Primary Primary hypertension Unspecified essential hypertension documented in this encounter Care Teams Metal Furniture Polisher Relationship Specialty Start Date End Date Betsy Dior NP [address] [place] [address] PCP - General Family Medicine 06/21/23 documented as of this encounter
--- OUTSIDE RECORDS SUMMARY | 2025-06-18 09:25 | XMS_ITS | Encounter Summary ---
Author Organization [employer] Address [address] [facility] [address] [place] [address] Care Team Providers Care Macroeconomics Professor Name Role Phone Betsy Dior NP Primary Care Provider [phone] Encounter Details Date Type Department Care Team ([facility] Contact Info) Description 04/10/2025 Telephone [facility] MEDICINE [address] [place] [address] Betsy Dior NP [address] [place] [address] Social History Tobacco Use Types Packs/Day Years [...] 11:30 AM EST Office Visit [facility] MEDICINE [address] [place] [address] Betsy Dior NP [address] [place] [address] 07/17/2025 8:45 AM EST Office Visit [facility] ADULT DENTAL [address] [place] [address] Adriana, Flor [address] [place] [address] 09/15/2025 1:30 PM EDT Office Visit [facility] OPTOMETRY [address] [place] [address] Hermann, Nhi, OD [address] [place] [address] documented as of this encounter Visit Diagnoses Not on filedocumented in this encounter Additional Health Concerns Assessment Noted Time PHQ-9 Depression Total Score: 0 04/03/20 24 2:15 PM EDT documented as of this encounter Care Teams Macroeconomics Professor Relationship Specialty Start Date End Date Betsy Dior NP [address] [place] [address] PCP - General Family Medicine 06/21/23 documented as of this encounter
--- OUTSIDE RECORDS SUMMARY | 2025-06-18 09:25 | XMS_ITS | Encounter Summary ---
Author Organization [employer] Address [address] [facility] [address] [place] [address] Care Team Providers Care Photoengraving Proofer Name Role Phone Betsy Dior NP Primary Care Provider [phone] Reason for Visit * Reason Onset Date Comments CHARTPREP 06/17/2025 Encounter Details Date Type Department Care Team (Late st Contact Info) Description 06/17/2025 Telephone [facility] MEDICINE [address] [place] [address] Betsy Dior NP [address] [place] [address] CHARTPREP Social History Tobacco Use Types Packs/Day Years [...] encounter Miscellaneous Notes * Telephone Encounter - Alee Jordan MA - 06/17/2025 3:20 PM EST Chart Prep Labs: not done Images: done Referrals: not applicable Vaccines due: Covid Screenings: colonoscopy, Overdue care gaps: A1c, Glucose, SBIRT, PHQ-9, BYRON-7, and Oral health screening documented in this encounter Plan of Treatment Upcoming Encounters Date Type Department Care Team (Late st Contact Info) Description 06/18/2025 11:30 AM EST Office Visit [facility] MEDICINE [address] [place] [address] Betsy Dior NP [address] [place] [address] 07/17/2025 8:45 AM EST Office Visit [facility] ADULT DENTAL [address] [place] [address] Flor Wright [address] [place] [address] 09/15/2025 1:30 PM EDT Office Visit [facility] OPTOMETRY [address] [place] [address] Nhi Mccrary, OD [address] [place] [address] documented as of this encounter Goals Goal Patient Goal Type Associated Problems Recent Progress Patient-Stated? Author Help patients manage their type 2 diabetes Care Plan Help patients manage their type 2 diabetes Alee Patterson MA Weekly blood pressure task Care Plan Weekly blood pressure task No Alee Jordan MA Help patients manage their type 2 diabetes Care Plan Help patients manage their type 2 diabetes Alee Patterson MA Patient has chronic kidney disease Care Plan Patient has chronic kidney disease Alee Patterson MA Weekly blood pressure task Care Plan Weekly blood pressure task Alee Patterson MA Patient has chronic kidney disease Care Plan Patient has chronic kidney disease Alee Patterson MA documented as of this encounter Visit Diagnoses Not on filedocumented in this encounter Additional Health Concerns Active Problems Noted Date Diagnosed Date Help patients manage their type 2 diabetes 06/17 Weekly blood pressure task 06/17/2025 Help patients manage their type 2 diabetes 06/17 Patient has chronic kidney disease 06/17/2025 Weekly blood pressure task 06/17/2025 Patient has chronic kidney disease 06/17/2025 Assessment Noted Time PHQ-9 Depression Total Score: 0 04/03/20 24 2:15 PM EDT documented as of this encounter Care Teams Photoengraving Proofer Relationship Specialty Start Date End Date Betsy Dior NP [address] [place] [address] PCP - General Family Medicine 06/21/23 documented as of this encounter
[2025-06-18 12:18] LABS: Anion Gap 13 (12-20); Blood Urea Nitrogen 20 mg/dL (9-16); Calcium 9.6 mg/dL (8.4-10.2); Carbon Dioxide 25 mmol/L (22-29); Chloride 108 mmol/L (96-108); Cholesterol 104 mg/dL (<200); Estimated Glomerular Filt Rate > 60; HDL Cholesterol 47 mg/dL (>40); Potassium 5.1 mmol/L (3.3-5.1); Sodium 141 mmol/L (135-145); Triglycerides 84 mg/dL (<150)
[2025-06-18 12:33] LABS: Microalbum/Creatinine Ratio Ur 95.3 ug/mg cr (<30)
== END 2025-06-18 09:14 | disposition home or self-care (01) ==
LOC: HO.HHCL 09:13
PROVIDERS: PCP Nurse Practitioner; Visit Provider Nurse Practitioner
DX: I10 Essential (primary) hypertension (principal); E11.9 Type 2 diabetes mellitus without complications; E03.9 Hypothyroidism, unspecified; R80.9 Proteinuria, unspecified
CPT/HCPCS: 36415; 80048; 80061; 82043; 82570; 83036; 84443